=== PATIENT | male | born 1950 | race Caucasian/White ===

== ENCOUNTER 2016-10-21 16:49 | Emergency (ER) | payer OTHER ==
[2016-10-21 16:57] VITALS: BP 171/77
--- NOTE | 2016-10-21 17:37 | UC ---
Throat Pain/Nasal Fernie HPI - HPI Summary HPI Summary: complaint of nasal congestion and cough that started over 2 weeks ago intermittent headaches sinus pressure in his forehead and face when he lays down to sleep he chokes on phlegm sleeping sitting up for the last week denies fever and chills taking tylenol extra strength with relief of pain - History of Current Complaint Chief Complaint: UCRespiratory Stated Complaint: COUGH, AND CONGESTION Time Seen by Provider: 10/21/16 17:29 Hx Obtained From: Patient - Allergies/Home Medications Allergies/Adverse Reactions: Allergies Allergy/AdvReac Type Severity Reaction Status Date / Time Iohexol Allergy Severe Difficulty Verified 10/21/16 16:57 Breathing Valsartan Allergy Severe HYPERKALEMI Verified 10/21/16 16:59 A INJECTABLE MED FOR Allergy Severe Anaphylatic Uncoded 10/21/16 16:57 HYPERKALEMIA Shock Home Medications: Home Medications Diltiazem HCl Coated Beads [Diltiazem HCl ER] 240 mg PO 10/21/16 [History] Ibuprofen TAB* [Advil TAB*] 400 mg PO PRN 10/21/16 [History] PMH/Surg Hx/FS Hx/Imm Hx Previously Healthy: Yes Endocrine History Of: Reports: Diabetes - TYPE II Cardiovascular History Of: Reports: Hypertension Denies: Pacemaker/ICD Respiratory History Of: Denies: Asthma GI/ History Of: Reports: Renal Disease - Surgical History Surgical History: Yes Surgery Procedure, Year, and Place: LEFT EYE REMOVED WITH PLASTIC PROSTHETIC ( NOTHING IN SOCKET JUST PLASTIC ORB);. RIGHT nephrectomy. right knee surgery - Family History Known Family History: Negative: Cardiac Disease, Hypertension, Diabetes - Social History Occupation: Retired Lives: With Family Alcohol Use: None Alcohol Amount: glass of wine with dinner Substance Use Type: None Smoking Status (MU): Former Smoker Type: Cigarettes Amount Used/How Often: 1 PPD Length of Time of Smoking/Using Tobacco: 15 years Have You Smoked in the Last Year: No When Did the Patient Quit Smoking/Using Tobacco: 2012 Household Exposure Type: Cigarettes - Immunization History Most Recent Influenza Vaccination: 2014 Most Recent Tetanus Shot: more than 10 years Most Recent Pneumonia Vaccination: 2012 Review of Systems Constitutional: Negative, Fever Eyes: Negative ENT: Nasal Discharge Respiratory: Cough Cardiovascular: Negative Gastrointestinal: Negative Genitourinary: Negative Motor: Negative Neurovascular: Negative Musculoskeletal: Negative Neurological: Negative Psychological: Negative All Other Systems Reviewed And Are Negative: Yes Physical Exam Triage Information Reviewed: Yes Appearance: No Pain Distress, Well-Nourished Vital Signs: Initial Vital Signs Temp 98.2 F 10/21/16 16:52 Pulse 64 10/21/16 16:52 Resp 18 10/21/16 16:52 BP 171/77 10/21/16 16:52 Pulse Ox 96 10/21/16 16:52 Vital Signs Reviewed: Yes Eyes: Positive: Conjunctiva Clear ENT: Positive: Pharyngeal erythema, Nasal congestion, Nasal drainage, TMs normal , Other: - frontal sinus tenderness Neck: Positive: No Lymphadenopathy Respiratory: Positive: Lungs clear, Normal breath sounds, No respiratory distress Cardiovascular: Positive: RRR, No Murmur, Pulses Normal Abdomen Description: Positive: Nontender, Soft Bowel Sounds: Positive: Present Musculoskeletal: Positive: No Edema Neurological: Positive: Alert Psychological Exam: Normal Skin Exam: Normal Throat Pain/Nasal Course/Dx - Course Course Of Treatment: exam completed - Differential Dx/Diagnosis Differential Diagnosis/HQI/PQRI: Pharyngitis, Sinusitis, URI Provider Diagnoses: elevated blood pressure, sinusitis Discharge - Discharge Plan Condition: Stable Disposition: HOME Prescriptions: Amoxicillin/Clavulanate TAB* [Augmentin TAB 875*] 875 mg PO BID #20 tab Patient Education Materials: Sinusitis (ED) Additional Instructions: Your blood pressure is elevated- please followup with your primary care provider for further evaluation and treatment Please take antibiotic as directed. Increase fluids and rest Take acetaminophen or ibuprofen for fever or pain Please review your discharge instructions. If your symptoms do not improve please call your primary care provider or return to urgent care.
== END 2016-10-21 17:49 | disposition home or self-care (01) ==
LOC: UCEAST 16:49
DX: J32.9 Chronic sinusitis, unspecified (principal); I10 Essential (primary) hypertension; Z87.891 Personal history of nicotine dependence
CPT/HCPCS: 99212; G0463

== ENCOUNTER 2017-01-20 18:22 | Observation (INO) | payer OTHER ==
[2017-01-20] MEDS: NS 0.9% 1000 ML* 2,000 ML IV ONE ×2 (18:54→21:05)
[2017-01-20 19:01] LABS: Hematocrit 27 % (42-52); Mean Corpuscular HGB Conc 33 g/dl (31-36); Mean Corpuscular Hemoglobin 29 pg (27-31); Mean Corpuscular Volume 88 fL (80-94); Mean Platelet Volume 9 um3 (7.4-10.4); Red Cell Distribution Width 13 % (10.5-15); White Blood Count 5.7 10^3/ul (3.5-10.8)
[2017-01-20 19:16] LABS: Albumin 3.3 g/dL (3.2-5.2); BUN/Creatinine Ratio 14.2 (8-20); C Reactive Protein 10.79 mg/L (< 5.00); Calcium 8.1 mg/dL (8.6-10.3); EGFR African American 24.3 (>60); EGFR Non-African American 18.9 (>60); Globulin 2.7 g/dL (2-4); Magnesium 1.7 mg/dL (1.9-2.7); Potassium 4.2 mmol/L (3.5-5.0); Total Bilirubin 0.3 mg/dL (0.2-1.0)
--- NOTE | 2017-01-20 19:24 | RAD ---
INDICATION: Altered mental status. COMPARISON: Comparison is made with a prior study from October 29, 2014. TECHNIQUE: A portable view of the chest was obtained. FINDINGS: Cardiac and mediastinal contours appear to be within normal limits. The lungs are clear. No pleural effusion is seen. IMPRESSION: NO EVIDENCE FOR ACUTE DISEASE.
[2017-01-20] MEDS ORDERED: Magnesium Sulfate 2 GM IV* 2 GM/50 ML BAG IVPB ONE (19:45)
[2017-01-20 19:46] LABS: TSH (Thyroid Stimulating Horm) 1.84 mcIU/mL (0.34-5.60)
--- NOTE | 2017-01-20 20:10 | ED ---
I, Rafy,Pretty, scribed for Blake Santillan MD on 01/20/17 at 1939 . Syncope/Near Syncope - HPI Summary HPI Summary: This 66 y/o male presents to ED for persistent feeling of malaise and orthostatic near syncope since today. Pt reports persistent cough, myalgia, and chest congestion since 3 weeks ago, and acute onset of lightheaded dizziness that is worse with standing since today AM. Pt is currently on abx cefdinir in addition to his daily medication of diltiazem, furosemid, terazosin, and glimepiride. Pt is noted with heart rate of 46 bpm at triage. PMHx is significant for renal CA s/p right nephrectomy, DM, and chronic diarrhea. - History Of Current Complaint Chief Complaint: EDGeneral Time Seen by Provider: 01/20/17 18:57 Hx Obtained From: Patient, Medical Records Onset/Duration: Sudden Onset Timing: Constant Context: Unwitnessed Aggravating Factor(s): Position Change Alleviating Factor(s): Spontaneous Resolution Associated Signs And Symptoms: Diarrhea - chronic - Allergies/Home Medications Allergies/Adverse Reactions: Allergies Allergy/AdvReac Type Severity Reaction Status Date / Time Iohexol Allergy Severe Difficulty Verified 10/21/16 16:57 Breathing Valsartan Allergy Severe HYPERKALEMI Verified 10/21/16 16:59 A INJECTABLE MED FOR Allergy Severe Anaphylatic Uncoded 10/21/16 16:57 HYPERKALEMIA Shock PMH/Surg Hx/FS Hx/Imm Hx Endocrine/Hematology History: Reports: Hx Diabetes - TYPE II, Hx Anemia - previously while on chemo Cardiovascular History: Reports: Hx Hypertension Denies: Hx Pacemaker/ICD Respiratory History: Reports: Hx Sleep Apnea Denies: Hx Asthma GI History: Reports: Hx Gastroesophageal Reflux Disease, Hx Irritable Bowel, Other GI Disorders - chronic diarrhea History: Reports: Hx Benign Prostatic Hyperplasia, Hx Chronic Renal Failure, Hx Kidney Infection - Hx of, Hx Renal Disease, Other Problems/Disorders - rt renal mass and nephrectomy Musculoskeletal History: Reports: Hx Bursitis - elbows, Hx Orthopedic Injury - right ACL Sensory History: Reports: Hx Cataracts, Hx Contacts or Glasses, 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 RIGHT nephrectomy. right knee surgery Hx Anesthesia Reactions: Yes - Immunization History Date of Tetanus Vaccine: Unk Date of Influenza Vaccine: Fall 2012 Infectious Disease History: No Infectious Disease History: Denies: Traveled Outside the [place] in Last 30 Days - Family History Known Family History: Negative: Cardiac Disease, Hypertension, Diabetes - Social History Alcohol Use: None Alcohol Amount: glass of wine with dinner Hx Substance Use: No Substance Use Type: Reports: None Hx Tobacco Use: Yes Smoking Status (MU): Former Smoker Type: Cigarettes Amount Used/How Often: 1 PPD Length of Time of Smoking/Using Tobacco: 15 years Have You Smoked in the Last Year: No Review of Systems Negative: Fever Positive: Other - sinus discomfort Positive: Cough Positive: Syncope - near syncope worse with standing Negative: Anxious, Depressed All Other Systems Reviewed And Are Negative: Yes Physical Exam Triage Information Reviewed: Yes Vital Signs On Initial Exam: Initial Vitals Temp Pulse Resp BP Pulse Ox 98.4 F 48 14 104/48 100 01/20/17 18:25 01/20/17 18:25 01/20/17 18:25 01/20/17 18:25 01/20/17 18:25 Vital Signs Reviewed: Yes Appearance: Positive: Ill-Appearing Skin: Positive: Pale Head/Face: Positive: Normal Head/Face Inspection Eyes: Positive: EOMI, ABDIAS Neck: Positive: Supple, Nontender Respiratory/Lung Sounds: Positive: Clear to Auscultation, Breath Sounds Present Cardiovascular: Positive: Bradycardia Abdomen Description: Positive: Nontender, No Organomegaly Musculoskeletal: Positive: Strength/ROM Intact Neurological: Positive: Sensory/Motor Intact, Alert, Oriented to Person Place, Time Psychiatric: Positive: Affect/Mood Appropriate AVPU Assessment: Alert Diagnostics - Vital Signs Vital Signs Temp Pulse Resp BP Pulse Ox 01/20/17 18:46 44 13 100/57 100 01/20/17 18:40 46 17 99 01/20/17 18:25 98.4 F 48 14 104/48 100 - Laboratory Lab Results: Lab Results 01/20/17 01/20/17 01/20/17 Range/Units 18:45 18:45 18:45 WBC 5.7 (3.5-10.8) 10^3/ul RBC 3.10 L (4.0-5.4) 10^6/ul Hgb 9.0 L (14.0-18.0) g/dl Hct 27 L (42-52) % MCV 88 (80-94) fL MCH 29 (27-31) pg MCHC 33 (31-36) g/dl RDW 13 (10.5-15) % Plt Count 198 (150-450) 10^3/ul MPV 9 (7.4-10.4) um3 Neut % (Auto) 60.8 (38-83) % Lymph % (Auto) 26.7 (25-47) % [place]ajas % (Auto) 8.4 (1-9) % Eos % (Auto) 3.6 (0-6) % Baso % (Auto) 0.5 (0-2) % Absolute Neuts (auto) 3.4 (1.5-7.7) 10^3/ul Absolute Lymphs (auto) 1.5 (1.0-4.8) 10^3/ul Absolute Monos (auto) 0.5 (0-0.8) 10^3/ul Absolute Eos (auto) 0.2 (0-0.6) 10^3/ul Absolute Basos (auto) 0 (0-0.2) 10^3/ul Absolute Nucleated RBC 0 10^3/ul Nucleated RBC % 0.1 INR (Anticoag Therapy) 0.87 L (0.89-1.11) APTT 32.0 (26.0-36.3) seconds D-Dimer, Quantitative < 200 (Less Than 230) ng/mL Sodium 132 L (133-145) mmol/L Potassium 4.2 (3.5-5.0) mmol/L Chloride 106 (101-111) mmol/L Carbon Dioxide 18 L (22-32) mmol/L Anion Gap 8 (2-11) mmol/L BUN 47 H (6-24) mg/dL Creatinine 3.31 H (0.67-1.17) mg/dL Est GFR ( Amer) 24.3 (>60) Est GFR (Non-Af Amer) 18.9 (>60) BUN/Creatinine Ratio 14.2 (8-20) Glucose 227 H (70-100) mg/dL Lactic Acid (0.5-2.0) mmol/L Calcium 8.1 L (8.6-10.3) mg/dL Magnesium 1.7 L (1.9-2.7) mg/dL Total Bilirubin 0.30 (0.2-1.0) mg/dL AST 11 L (13-39) U/L ALT 10 (7-52) U/L Alkaline Phosphatase 70 (34-104) U/L Total Creatine Kinase 73 (10-223) U/L CK-MB (CK-2) Pending Troponin I 0.00 (<0.04) ng/mL C-Reactive Protein 10.79 H (< 5.00) mg/L B-Natriuretic Peptide ( - 100) pg/mL Total Protein 6.0 L (6.4-8.9) g/dL Albumin 3.3 (3.2-5.2) g/dL Globulin 2.7 (2-4) g/dL Albumin/Globulin Ratio 1.2 (1-3) Lipase 20 (11.0-82.0) U/L TSH Pending 01/20/17 01/20/17 Range/Units 18:45 18:45 WBC (3.5-10.8) 10^3/ul RBC (4.0-5.4) 10^6/ul Hgb (14.0-18.0) g/dl Hct (42-52) % MCV (80-94) fL MCH (27-31) pg MCHC (31-36) g/dl RDW (10.5-15) % Plt Count (150-450) 10^3/ul MPV (7.4-10.4) um3 Neut % (Auto) (38-83) % Lymph % (Auto) (25-47) % Lajas % (Auto) (1-9) % Eos % (Auto) (0-6) % Baso % (Auto) (0-2) % Absolute Neuts (auto) (1.5-7.7) 10^3/ul Absolute Lymphs (auto) (1.0-4.8) 10^3/ul Absolute Monos (auto) (0-0.8) 10^3/ul Absolute Eos (auto) (0-0.6) 10^3/ul Absolute Basos (auto) (0-0.2) 10^3/ul Absolute Nucleated RBC 10^3/ul Nucleated RBC % INR (Anticoag Therapy) (0.89-1.11) APTT (26.0-36.3) seconds D-Dimer, Quantitative (Less Than 230) ng/mL Sodium (133-145) mmol/L Potassium (3.5-5.0) mmol/L Chloride (101-111) mmol/L Carbon Dioxide (22-32) mmol/L Anion Gap (2-11) mmol/L BUN (6-24) mg/dL Creatinine (0.67-1.17) mg/dL Est GFR ( Amer) (>60) Est GFR (Non-Af Amer) (>60) BUN/Creatinine Ratio (8-20) Glucose (70-100) mg/dL Lactic Acid 1.3 (0.5-2.0) mmol/L Calcium (8.6-10.3) mg/dL Magnesium (1.9-2.7) mg/dL Total Bilirubin (0.2-1.0) mg/dL AST (13-39) U/L ALT (7-52) U/L Alkaline Phosphatase (34-104) U/L Total Creatine Kinase (10-223) U/L CK-MB (CK-2) Troponin I (<0.04) ng/mL C-Reactive Protein (< 5.00) mg/L B-Natriuretic Peptide 329 H ( - 100) pg/mL Total Protein (6.4-8.9) g/dL Albumin (3.2-5.2) g/dL Globulin (2-4) g/dL Albumin/Globulin Ratio (1-3) Lipase (11.0-82.0) U/L TSH Result Diagrams: 01/20/17 18:45 01/20/17 18:45 Lab Statement: Any lab studies that have been ordered have been reviewed, and results considered in the medical decision making process. - Radiology CXR Xray Interpretation: No Acute Changes Radiology Interpretation Completed By: Radiologist - EKG 7644 Cardiac Rate: Bradycardia - 46 bpm EKG Interpretation: junctional rhythm Course/Dx Course Of Treatment: NO CRITICAL CARE TIME Assessment/Plan: DISCUSSED RESULTS WITH PATIENT. ADMIT HOSPITALIST STABLE. - Diagnoses Provider Diagnoses: Symptomatic bradycardia, Junctional bradycardia, Near syncope, Renal insufficiency - Physician Notifications Discussed Care Of Patient With: Dr. Grover (Hospitalist) at 1952 PM Time Discussed With Above Provider: 19:52 Discharge - Discharge Plan Condition: Stable Disposition: ADMITTED TO [facility] Referrals: Rosaura Solomon MD [Primary Care Provider] - The documentation as recorded by the Rafy salmon Soohyun accurately reflects the service I personally performed and the decisions made by , Blake Santillan MD.
[2017-01-20] MEDS ORDERED: Dextrose 50% Syringe 50 ML* 25 GM/50 ML SYRINGE IV PUSH PRN (20:53)
[2017-01-20] MEDS ORDERED: Terazosin CAP* 1 MG PO SCH (21:00)
[2017-01-20] MEDS: Insulin LISPRO* 1 UNITS UNIT SUBCUT SCH (22:58)
[2017-01-20] MEDS: Heparin VIAL(*) 5000 UNITS/ML VIAL (FIVE THOUSAND) SUBCUT SCH (23:01)
[2017-01-20 23:10] LABS: Urine Bacteria Absent (Absent); Urine Bilirubin Negative (Negative); Urine Glucose Negative (Negative); Urine Nitrite Negative (Negative)
[2017-01-21] MEDS: Heparin VIAL(*) 5000 UNITS/ML VIAL (FIVE THOUSAND) SUBCUT SCH ×2 (05:39→13:01)
--- NOTE | 2017-01-21 06:17 | HP ---
HISTORY AND PHYSICAL: DATE OF ADMISSION: 01/20/17 PRIMARY CARE PHYSICIAN: Dr. Solomon. CHIEF COMPLAINT: Lightheadedness. HISTORY OF PRESENT ILLNESS: The patient is a 66-year-old gentleman who said he felt he was on the verge of passing out earlier today that started about 3 or 4 p.m. He says he had a recent upper respiratory infection, in which he had a nagging cough and sinus congestion. He has had that for about 3 weeks. His significant other has the same thing. He actually went and saw the ear, nose and throat doctor who put him on cefdinir. He has only been on that for 3 to 4 days. He denies any chest pain or nausea or vomiting. He does have some pain in his chest when he does cough, however. He says his fever did decrease to 101 at one point. He also notes that one of his medications, the diltiazem, was just added to his current regimen. PAST MEDICAL HISTORY: The patient has a past medical history significant for diabetes mellitus type 2, hypertension, GERD, chronic kidney disease, urinary retention, renal cancer, status post nephrectomy. PAST SURGICAL HISTORY: Significant for the nephrectomy as noted earlier. CURRENT MEDICATIONS: 1. Cefdinir 300 mg twice daily. 2. Furosemide 20 mg daily. 3. Diltiazem ER 300 mg in the morning. 4. Cardia XT 240 mg in the evening. 5. Terazosin 2 mg daily. 6. Glimepiride 1 mg twice daily. 7. Atenolol 25 mg daily. ALLERGIES: He has an allergy/adverse reaction to IOHEXOL and VALSARTAN. FAMILY HISTORY: Mother at age 89 of Alzheimer's. Father at 76 with CHF. SOCIAL HISTORY: No tobacco, no alcohol or recreational drug use. He quit tobacco 4 years ago, did smoke a pack a day for 20 years. He is a retired manufacturing plant technician. He has a significant other, Lily Barry, who is his healthcare proxy. He has no children. REVIEW OF SYSTEMS: A 14-point review of systems was completed with the patient. All pertinent positives and negatives are in the history of present illness; otherwise they are negative. PHYSICAL EXAMINATION GENERAL: Pleasant gentleman lying in bed in no acute distress. VITAL SIGNS: Temperature 98.1 degrees, heart rate 30 beats per minute, respiratory rate 17 breaths per minute, pulse ox 98%, his blood pressure is 94/ 45. HEENT: Normocephalic, atraumatic. Pupils are equal, round, and reactive to light. Moist mucous membranes. NECK: Supple. No JVD, bruits, palpable thyroid or lymphadenopathy. LUNGS: His chest is clear to auscultation and percussion bilaterally. CARDIOVASCULAR: S1, S2 appreciated. Regular rate and rhythm. ABDOMEN: Positive bowel sounds in all 4 quadrants. Soft, nontender, nondistended. No hepatosplenomegaly. EXTREMITIES: No cyanosis, clubbing or edema, +2 peripheral pulses bilaterally. NEUROLOGIC: Alert and oriented x3. Moves all extremities. SKIN: No distinct rashes or abnormalities. LABORATORY DATA/DIAGNOSTIC STUDIES: White count 5.7, hemoglobin 9.0, hematocrit 27, platelets 198. His sodium is 132, potassium 4.2, chloride 106, CO2 18, BUN 47, creatinine 3.31, glucose 227, lactic acid 1.3. CRP 10.79. His magnesium is 1.7. D-dimer is less than 200. Chest x-ray shows no evidence for acute disease. His EKG shows a junctional rhythm at about 47 beats a minute, left axis deviation. No acute ST-T wave changes. ASSESSMENT AND PLAN: 1. Symptomatic bradycardia with a junctional rhythm, almost certainly secondary to the fact that he is taking both Cardia and diltiazem now. My guess is that his PCP was actually trying to increase his Cardizem, but the patient thought he was supposed to take both. In fact, he had an addition to atenolol. I will obviously hold these medications until we can get his normal sinus rhythm. I anticipate that will make him feel much better. If he does not improve, we will get an echo checked for his heart function. 2. Diabetes mellitus. Placed on fingersticks with sliding scale insulin. Hold oral hyperglycemics. 3. Hypomagnesemia. The patient received magnesium supplementation in the ER. We will recheck in the a.m.. 4. Anemia. He is about to where he normally is. We will monitor if patient's symptoms do not improve. 5. Hypertension. Actually hypotensive now with his increased use of AV louisa blocking agents. We will hold them and I anticipate this will improve. 6. FEN. Consistent carb diet. 7. DVT prophylaxis. Heparin subcu. 8. The patient is a full code. TIME SPENT: Over 75 minutes was spent on this H and P, more than 40 minutes of which was spent in direct [id number] contact with the patient in evaluation, physical exam, and counseling and coordination of care. CC: Dr. Solomon* [id number]/CPS #: [id number] ALLISON
[2017-01-21] MEDS: Insulin LISPRO* 1 UNITS UNIT SUBCUT SCH ×2 (07:21→11:25)
--- NOTE | 2017-01-21 11:58 | ECHO ---
Patient: PAULINO LEIVA [facility] Rec#: [id number] : 1950 Date: 01/21/2017 Age: 66y Height: 177.8 cm / 70.0 in Weight: 95.7 kg / 210.9 lbs Sex: M BSA: 2.1 Room#: 452 Admit Date#: 01/20/2017 Type: Inpatient Referring: Héctor Grover MD Reading: Sung Aden MD Jelly Filter Tender: Luba Cesar RN RDCS CC: Rosaura Solomon MD Transthoracic Echocardiogram Indication: Bradycardia, near syncope BP: 118/43 HR: 59 Rhythm: Bradycardia Findings History: HTN, DM, MITCHELL, GERD, former smoker, renal cancer, right nephrectomy, CRF Technical Comments: The study is technically limited due to patient body habitus. The study is technically limited due to the patient's smoking history. Completed at 1120. Left Ventricle: The left ventricular chamber size is normal. Mild concentric left ventricular hypertrophy is observed. There is increased basal septal hypertrophy noted without evidence of an increased gradient across the left ventricular outflow tract. Global left ventricular wall motion and contractility are within normal limits. There is normal left ventricular systolic function. The estimated ejection fraction is 55-60%. There is no consistent Doppler evidence of clinically significant diastolic dysfunction. Left Atrium: The left atrium is mildly dilated. Right Ventricle: The right ventricular chamber size and systolic function are within normal limits. Right Atrium: The right atrium is mildly dilated. Aortic Valve: The aortic valve is trileaflet. The aortic valve leaflets are mildly thickened. There is aortic annular calcification. There is a trace of aortic regurgitation. There is mild aortic stenosis. The mean gradient of the aortic valve is 9.8 mmHg. The highest aortic valve velocity was obtained with the standard probe from the A5C view. Mitral Valve: Moderate mitral annular calcification present. The mitral valve leaflets are mildly thickened. There is mild to moderate mitral regurgitation. There is no evidence of mitral stenosis. Tricuspid Valve: The tricuspid valve leaflets are normal. There is mild tricuspid regurgitation. No pulmonary hypertension is noted. There is no tricuspid stenosis. Pulmonic Valve: The pulmonic valve appears normal. There is a trace pulmonic regurgitation. There is no pulmonic stenosis. Pericardium: There is no significant pericardial effusion. A pericardial fat pad is visualized. Aorta: There is no dilatation of the ascending aorta. There is no dilatation of the aortic arch. The aortic root is normal in size. Pulmonary Artery: The main pulmonary artery appears normal. Venous: The inferior vena cava appears normal in size. There is a greater than 50% respiratory change in the inferior vena cava dimension. Conclusions Mild concentric left ventricular hypertrophy is observed. There is increased basal septal hypertrophy noted without evidence of an increased gradient across the left ventricular outflow tract. Global left ventricular wall motion and contractility are within normal limits. The estimated ejection fraction is 55-60%. There is a trace of aortic regurgitation. There is mild aortic stenosis. The mitral valve leaflets are mildly thickened. There is mild to moderate mitral regurgitation. There is mild tricuspid regurgitation. No pulmonary hypertension is noted. There is no dilatation of the ascending aorta. There is no significant pericardial effusion. Compared to study of 07/22/14, the LV function is the same The mitral reguritation is slightly worse Measurements Name Value Normal Range RVIDd (AP) 2D 2.4 cm (0.9 - 2.6) RVDdMajor (2D) 3.4 cm (2.2 - 4.4) RAd ISD 4CH 5.4 cm (3.4 - 4.9) RA (A4C)W 4.4 cm (2.9 - 4.6) IVSd (2D) 1.1 cm (0.6 - 1) LVPWd (2D) 1.1 cm (0.6 - 1) LVIDd (2D) 4.9 cm (3.6 - 5.4) LVIDs (2D) 3.4 cm - LV FS (2D) 31 % (25 - 45) Aortic Annulus 2.3 cm (1.4 - 2.6) Ao root diameter (2D) 3.3 cm (2.1 - 3.5) Ascending Ao 2.9 cm (2.1 - 3.4) Aortic arch 2.5 cm (1.8 - 3.4) LA dimension (AP) 2D 4.5 cm (2.3 - 3.8) LAd ISD 4CH 5.5 cm (2.9 - 5.3) LA ISD 4CH W 4.9 cm (2.5 - 4.5) Name Value Normal Range LA ESV SP 4CH (A/L) 81 ml - LA ESV SP 2CH (A/L) 83 ml - LA ESV BP (A/L) 83 ml - LA ESV BP (A/L) index 39 ml/m2 - LA ESV SP 4CH (MOD) 71 ml - LA ESV SP 2CH (MOD) 80 ml - Name Value Normal Range MV E-wave Vmax 1.1 m/sec - MV deceleration time 183 msec - MV A-wave Vmax 0.8 m/sec - MV E:A ratio 1.4 ratio - LV septal e' Vmax 0.11 m/sec - LV lateral e' Vmax 0.11 m/sec - LV E:e' septal ratio 10 ratio - LV E:e' lateral ratio 10 ratio - Name Value Normal Range AV Vmax 2.1 m/sec - AV VTI 50.9 cm - AV peak gradient 17.5 mmHg - AV mean gradient 9.8 mmHg - LVOT diameter 2 cm - LVOT Vmax 0.98 m/sec - LVOT VTI 24.8 cm - LVOT mean gradient 2 mmHg - DOI (VTI) 0.49 ratio - GRAHAM (continuity Vmax) 1.5 cm2 - GRAHAM (continuity VTI) 1.5 cm2 - Name Value Normal Range TR Vmax 2.6 m/sec - TR peak gradient 27 mmHg - RAP 3 mmHg - RVSP 30 mmHg - IVC diameter 1.6 cm - Name Value Normal Range PV Vmax 0.81 m/sec -
--- NOTE | 2017-01-21 12:30 | PN ---
Subjective Date of Service: 01/21/17 Interval History: Pt is feeling well. No further dizziness or lightheadedness. He has been ambulating some around the room but has not been up in the halls. No SOB. He has mild chest discomfort when coughing. Objective Active Medications: Dextrose (D50w Syringe 50 Ml*) 12.5 gm IV PUSH .FOR FS < 60 - SS PRN PRN Reason: FS < 60 Heparin Sodium (Porcine) (Heparin Vial(*)) 5,000 units SUBCUT Q8HR [facility] Last Admin: 01/21/17 05:39 Dose: 5,000 units Insulin Human Lispro (Humalog*) 0 units SUBCUT ACHS [facility] PRN Reason: Protocol Last Admin: 01/21/17 11:25 Dose: Not Given Terazosin HCl (Hytrin Cap*) 2 mg PO BEDTIME [facility] Last Admin: 01/20/17 23:21 Dose: 2 mg Vital Signs 01/20/17 01/20/17 01/20/17 21:00 21:16 21:19 Temperature Pulse Rate 43 40 38 Respiratory 12 12 17 Rate Blood Pressure 89/49 102/46 (mmHg) O2 Sat by Pulse 99 99 98 Oximetry 01/20/17 01/20/17 01/20/17 21:24 21:30 21:36 Temperature 98.1 F Pulse Rate 39 40 Respiratory 17 18 Rate Blood Pressure 94/45 (mmHg) O2 Sat by Pulse 97 99 Oximetry 01/20/17 01/21/17 01/21/17 21:57 03:05 07:08 Temperature 97.7 F 98.0 F Pulse Rate 44 55 Respiratory 16 16 16 Rate Blood Pressure 115/49 118/43 (mmHg) O2 Sat by Pulse 99 100 Oximetry 01/21/17 01/21/17 07:32 11:43 Temperature 98.4 F 98.4 F Pulse Rate 59 58 Respiratory 16 16 Rate Blood Pressure 126/57 143/63 (mmHg) O2 Sat by Pulse 98 98 Oximetry Oxygen Devices in Use Now: None Appearance: Middle aged male sitting up on the edge of the bed, NAD Eyes: No Scleral Icterus Ears/Nose/Mouth/Throat: Mucous Membranes Moist Respiratory: Symmetrical Chest Expansion and Respiratory Effort, Clear to Auscultation Cardiovascular: NL Sounds; No Murmurs; No JVD, RRR, No Edema Abdominal: NL Sounds; No Tenderness; No Distention Extremities: No Clubbing, Cyanosis Skin: No Rash or Ulcers, No Nodules or Sclerosis Neurological: Alert and Oriented x 3 Result Diagrams: 01/20/17 18:45 01/20/17 18:45 Additional Lab and Data: Lab Results 01/20/17 01/20/17 01/20/17 Range/Units 18:45 18:45 18:45 WBC 5.7 (3.5-10.8) 10^3/ul RBC 3.10 L (4.0-5.4) 10^6/ul Hgb 9.0 L (14.0-18.0) g/dl Hct 27 L (42-52) % MCV 88 (80-94) fL MCH 29 (27-31) pg MCHC 33 (31-36) g/dl RDW 13 (10.5-15) % Plt Count 198 (150-450) 10^3/ul MPV 9 (7.4-10.4) um3 Neut % (Auto) 60.8 (38-83) % Lymph % (Auto) 26.7 (25-47) % [place] % (Auto) 8.4 (1-9) % Eos % (Auto) 3.6 (0-6) % Baso % (Auto) 0.5 (0-2) % Absolute Neuts (auto) 3.4 (1.5-7.7) 10^3/ul Absolute Lymphs (auto) 1.5 (1.0-4.8) 10^3/ul Absolute Monos (auto) 0.5 (0-0.8) 10^3/ul Absolute Eos (auto) 0.2 (0-0.6) 10^3/ul Absolute Basos (auto) 0 (0-0.2) 10^3/ul Absolute Nucleated RBC 0 10^3/ul Nucleated RBC % 0.1 INR (Anticoag Therapy) 0.87 L (0.89-1.11) APTT 32.0 (26.0-36.3) seconds D-Dimer, Quantitative < 200 (Less Than 230) ng/mL Sodium 132 L (133-145) mmol/L Potassium 4.2 (3.5-5.0) mmol/L Chloride 106 (101-111) mmol/L Carbon Dioxide 18 L (22-32) mmol/L Anion Gap 8 (2-11) mmol/L BUN 47 H (6-24) mg/dL Creatinine 3.31 H (0.67-1.17) mg/dL Est GFR ( Amer) 24.3 (>60) Est GFR (Non-Af Amer) 18.9 (>60) BUN/Creatinine Ratio 14.2 (8-20) Glucose 227 H (70-100) mg/dL Lactic Acid (0.5-2.0) mmol/L Calcium 8.1 L (8.6-10.3) mg/dL Magnesium 1.7 L (1.9-2.7) mg/dL Total Bilirubin 0.30 (0.2-1.0) mg/dL AST 11 L (13-39) U/L ALT 10 (7-52) U/L Alkaline Phosphatase 70 (34-104) U/L Total Creatine Kinase 73 (10-223) U/L CK-MB (CK-2) Pending Troponin I 0.00 (<0.04) ng/mL C-Reactive Protein 10.79 H (< 5.00) mg/L B-Natriuretic Peptide ( - 100) pg/mL Total Protein 6.0 L (6.4-8.9) g/dL Albumin 3.3 (3.2-5.2) g/dL Globulin 2.7 (2-4) g/dL Albumin/Globulin Ratio 1.2 (1-3) Lipase 20 (11.0-82.0) U/L TSH Pending 01/20/17 01/20/17 Range/Units 18:45 18:45 WBC (3.5-10.8) 10^3/ul RBC (4.0-5.4) 10^6/ul Hgb (14.0-18.0) g/dl Hct (42-52) % MCV (80-94) fL MCH (27-31) pg MCHC (31-36) g/dl RDW (10.5-15) % Plt Count (150-450) 10^3/ul MPV (7.4-10.4) um3 Neut % (Auto) (38-83) % Lymph % (Auto) (25-47) % [place] % (Auto) (1-9) % Eos % (Auto) (0-6) % Baso % (Auto) (0-2) % Absolute Neuts (auto) (1.5-7.7) 10^3/ul Absolute Lymphs (auto) (1.0-4.8) 10^3/ul Absolute Monos (auto) (0-0.8) 10^3/ul Absolute Eos (auto) (0-0.6) 10^3/ul Absolute Basos (auto) (0-0.2) 10^3/ul Absolute Nucleated RBC 10^3/ul Nucleated RBC % INR (Anticoag Therapy) (0.89-1.11) APTT (26.0-36.3) seconds D-Dimer, Quantitative (Less Than 230) ng/mL Sodium (133-145) mmol/L Potassium (3.5-5.0) mmol/L Chloride (101-111) mmol/L Carbon Dioxide (22-32) mmol/L Anion Gap (2-11) mmol/L BUN (6-24) mg/dL Creatinine (0.67-1.17) mg/dL Est GFR ( Amer) (>60) Est GFR (Non-Af Amer) (>60) BUN/Creatinine Ratio (8-20) Glucose (70-100) mg/dL Lactic Acid 1.3 (0.5-2.0) mmol/L Calcium (8.6-10.3) mg/dL Magnesium (1.9-2.7) mg/dL Total Bilirubin (0.2-1.0) mg/dL AST (13-39) U/L ALT (7-52) U/L Alkaline Phosphatase (34-104) U/L Total Creatine Kinase (10-223) U/L CK-MB (CK-2) Troponin I (<0.04) ng/mL C-Reactive Protein (< 5.00) mg/L B-Natriuretic Peptide 329 H ( - 100) pg/mL Total Protein (6.4-8.9) g/dL Albumin (3.2-5.2) g/dL Globulin (2-4) g/dL Albumin/Globulin Ratio (1-3) Lipase (11.0-82.0) U/L TSH Assess/Plan/Problems-Billing Mr Martinez is a 66 yo M who has a h/o RCC s/p nephrectomy, HTN, type II DM, CKD stage III-IV and GERD who presented to the ER with c/o lightheadedness and a feeling like he may pass out and was found to be in a junctional bradycardic rhythm. - Patient Problems (1) Junctional bradycardia Current Visit: Yes Status: Acute Code(s): R00.1 - BRADYCARDIA, UNSPECIFIED SNOMED Code(s): 361936654 Comment: I believe the patients symptomatic bradycardia was secondary to the junctional rhythm secondary to too much AV louisa jorge alberto on board (540mg of diltiazem and 25mg of atenolol). Diltiazem and atenolol have been discontinued. He is now in sinus bradycardia. Will get EKG to confirm. Will get patient up and walking in the halls. If stable and HR increases appropriately with exertion will likely be able to d/c pt home. (2) Chronic kidney disease, stage IV (severe) Current Visit: Yes Status: Acute Code(s): N18.4 - CHRONIC KIDNEY DISEASE, STAGE 4 (SEVERE) SNOMED Code(s): 517977788 Comment: The patient has AGUSTIN with his creatinine being 3.31 up from his baseline of 2.2. He did not receive any fluids overnight but did get 2L in the ER. Repeat BMP now. I suspect his AGUSTIN is secondary to poor perfusion secondary to his junctional bradycardia. (3) Hypertension Current Visit: Yes Status: Acute Code(s): I10 - ESSENTIAL (PRIMARY) HYPERTENSION SNOMED Code(s): 02317666 Comment: BP is mildly elevated. Will start amlodipine 5mg daily tomorrow and his BP will need to be monitored closely. He will need to follow up with his PCP in the next couple days to determine is his BP/HR are stable. I am going to try to get records from his PCP to determine his baseline VS and accurate medication list. (4) Diabetes type 2, controlled Current Visit: Yes Status: Acute Code(s): E11.9 - TYPE 2 DIABETES MELLITUS WITHOUT COMPLICATIONS SNOMED Code(s): 78133704 Comment: Sugars have fluctuated quite a bit today. Will resume glimepiride. (5) DVT prophylaxis Current Visit: Yes Status: Acute Code(s): OBW3370 - SNOMED Code(s): 410509451 Comment: SQ heparin (6) Full code status Current Visit: Yes Status: Acute Code(s): Z78.9 - OTHER SPECIFIED HEALTH STATUS SNOMED Code(s): 173152813
[2017-01-21 13:55] LABS: BUN/Creatinine Ratio 13.9 (8-20); Calcium 8.2 mg/dL (8.6-10.3); EGFR African American 24.9 (>60); EGFR Non-African American 19.4 (>60); Potassium 4.5 mmol/L (3.5-5.0)
[2017-01-21 16:17] VITALS: BP 141/66
--- NOTE | 2017-01-22 14:48 | DS ---
DISCHARGE SUMMARY: DATE OF ADMISSION: 01/20/17 DATE OF DISCHARGE: 01/21/17 PRIMARY CARE PROVIDER: Dr. Solomon. PRINCIPAL DIAGNOSIS: Junctional symptomatic bradycardia - resolved. SECONDARY DIAGNOSES: 1. Type 2 diabetes. 2. Hypertension. 3. History of renal cell carcinoma, status post nephrectomy. 4. Stage 3 to 4 chronic kidney disease. DISCHARGE MEDICATIONS: 1. Cefdinir 300 mg p.o. twice daily to complete home course of antibiotics. 2. Terazosin 2 mg p.o. daily. 3. Glimepiride 1 mg p.o. b.i.d. 4. Amlodipine 5 mg p.o. daily. Discontinued medications: 1. Atenolol. 2. Diltiazem. HOSPITAL COURSE: Mr. Martinez is a 66-year-old male with history of hypertension , type 2 diabetes, and renal cell carcinoma, status post nephrectomy approximately 3 years ago, who presents to the emergency room with complaints of lightheadedness. The patient states he felt almost faint. In the emergency room, the patient was noted to be bradycardic with a junctional rhythm. Upon reviewing the patient's home medication list, it became clear that he was on both Cartia XT as well as extended release diltiazem. The patient was taking a total of 540 mg of diltiazem a day in addition to atenolol 25 mg a day. I suspect the patient's junctional rhythm and lightheadedness and ultimately bradycardia were related to too much AV louisa jorge alberto medication. It is unclear how the patient got on both formulations of diltiazem; however, he was taking both. The patient was taken off his atenolol as well as both formulations of diltiazem and with this, his heart rate returned to sinus rhythm in the 60s. The patient is no longer feeling lightheaded or dizzy. He got up and ambulated around the hallway without any difficulty. The patient will be started on amlodipine 5 mg p.o. daily to start 01/22/17 for blood pressure control. I have asked the patient to follow up with Dr. Solomon in the next couple of days to ensure that his heart rate and blood pressure are under decent control. Also, on admission, the patient was noted to have a creatinine of 3.31. This is up from his baseline of 2.2. My suspicion is that acute kidney injury is secondary to poor perfusion while in the junctional rhythm. A followup creatinine on the day of discharge revealed it had fallen to 3.24. The patient was wishing to go home at this point. He states that he is not drinking as much as he normally does and he will pick this up. The patient will have a followup BMP on 01/23/17. The patient again will need to follow up with his primary care provider in the next couple of days. FOLLOWUP CONCERNS: The patient is being discharged home today, 01/21/17. He is to follow up with Dr. Solomon in the next 1 to 3 days. ACTIVITY LEVEL: As tolerated. DIET: Diabetic. CONDITION ON DISCHARGE: Stable. TIME SPENT: Thirty-five minutes was spent discharging this patient. CC: Dr. Solomon* [id number]/CPS #: [id number] ALLISON
== END 2017-01-21 17:18 | disposition home or self-care (01) ==
LOC: ED 18:22 → MEDTELE 20:48
PROVIDERS: ADMIT Internal Medicine; ATTEND Hospitalist
DX: R00.1 Bradycardia, unspecified (principal); E11.9 Type 2 diabetes mellitus without complications; I12.9 Hypertensive chronic kidney disease with stage 1 through stage 4 chronic kidney disease, or unspecified chronic kidney disease; N18.4 Chronic kidney disease, stage 4 (severe); E83.42 Hypomagnesemia; D64.9 Anemia, unspecified; I51.7 Cardiomegaly; Z79.84 Long term (current) use of oral hypoglycemic drugs; Z79.899 Other long term (current) drug therapy; Z88.8 Allergy status to other drugs, medicaments and biological substances; Z87.891 Personal history of nicotine dependence; Z90.5 Acquired absence of kidney
CPT/HCPCS: 36415; 71010; 80048; 80053; 81003; 81015; 82550; 82553; 83605; 83690; 83735; 83880; 84443; 84484; 85025; 85379; 85610; 85730; 86140; 87040; 87086; 93005; 93306; 96360; 96361; 96372; 99284; A9270-GY; G0378; J1644

== ENCOUNTER 2018-01-07 22:27 | Emergency (ER) | payer MEDICARE ==
[2018-01-07] MEDS ORDERED: Aspirin Low Dose CHEW TAB* 81 MG PO ONE (23:41)
[2018-01-07] MEDS ORDERED: Morphine INJ* 4 MG/ML 1 ML SYRINGE (NEW SYRINGE VERSION) IV ONE (23:41)
[2018-01-07] MEDS ORDERED: Ondansetron INJ* 2 MG/ML VIAL IV ONE (23:42)
[2018-01-08 00:03] LABS: ABS Basophils 0.1 10^3/ul (0-0.2); ABS Eosinophils 0.2 10^3/ul (0-0.6); ABS Lymphocytes 1.2 10^3/ul (1.0-4.8); ABS Monocytes 0.3 10^3/ul (0-0.8); ABS Neutrophils 4.5 10^3/ul (1.5-7.7); ABS Nucleated RBC 0 10^3/ul; Eosinophil % 3.3 % (0-6); Hematocrit 28 % (42-52); Hemoglobin 9.4 g/dl (14.0-18.0); Mean Corpuscular HGB Conc 34 g/dl (31-36); Mean Corpuscular Hemoglobin 31 pg (27-31); Mean Corpuscular Volume 91 fL (80-94); Mean Platelet Volume 9 um3 (7.4-10.4); Nucleated Red Blood Cells % 0; Platelet Count 157 10^3/ul (150-450); Red Blood Count 3.07 10^6/ul (4.0-5.4); Red Cell Distribution Width 13 % (10.5-15); White Blood Count 6.3 10^3/ul (3.5-10.8)
[2018-01-08 00:09] LABS: INR 0.86 (0.77-1.02)
[2018-01-08 00:19] LABS: EGFR Non-African American 28.1 (>60)
--- NOTE | 2018-01-08 04:11 | ED ---
Nico Miller Thomas, scribed for Blake Avalos MD on 01/07/18 at 2342 . HPI Chest Pain - HPI Summary HPI Summary: The patient is a 67 year old male presenting with a sharp left-sided chest pain that began today at 20:00. The pain is reproducible. He denies shortness of breath, dizziness, or any other symptoms. - History of Current Complaint Chief Complaint: EDChestPainROMI Time Seen by Provider: 01/07/18 23:30 Hx Obtained From: Patient Onset/Duration: Still Present Timing: Constant Current Severity: Severe Pain Intensity: 8 Pain Scale Used: 0-10 Numeric Chest Pain Location: Discrete at: - left-sided Character: Sharp/Stabbing Alleviating Factor(s): Nothing Associated Signs and Symptoms: Positive: Chest Pain. Negative: Fever - Additional Pertinent History Primary Care Physician: JOSÉ ANTONIO - Allergy/Home Medications Allergies/Adverse Reactions: Allergies Allergy/AdvReac Type Severity Reaction Status Date / Time MS Iohexol [Iohexol] Allergy Severe Difficulty Verified 01/07/18 23:33 Breathing MS Valsartan [Valsartan] Allergy Severe HYPERKALEMI Verified 01/07/18 23:33 A INJECTABLE MED FOR Allergy Severe Anaphylatic Uncoded 01/07/18 23:33 HYPERKALEMIA Shock PMH/Surg Hx/FS Hx/Imm Hx Endocrine/Hematology History: Reports: Hx Diabetes - TYPE II, Hx Anemia - previously while on chemo Cardiovascular History: Reports: Hx Hypertension Denies: Hx Pacemaker/ICD Respiratory History: Reports: Hx Sleep Apnea Denies: Hx Asthma GI History: Reports: Hx Gastroesophageal Reflux Disease, Hx Irritable Bowel, Other GI Disorders - chronic diarrhea History: Reports: Hx Benign Prostatic Hyperplasia, Hx Chronic Renal Failure, Hx Kidney Infection - Hx of, Hx Renal Disease, Other Problems/Disorders - rt renal mass and nephrectomy Musculoskeletal History: Reports: Hx Bursitis - elbows, Hx Orthopedic Injury - right ACL Sensory History: Reports: Hx Cataracts, Hx Contacts or Glasses, 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 RIGHT nephrectomy. right knee surgery Hx Anesthesia Reactions: Yes - Immunization History Date of Tetanus Vaccine: Unk Date of Influenza Vaccine: fall 2016 Infectious Disease History: No Infectious Disease History: Denies: Traveled Outside the [place] in Last 30 Days - Family History Known Family History: Negative: Cardiac Disease, Hypertension, Diabetes - Social History Alcohol Use: Rare Alcohol Amount: glass of wine with dinner Hx Substance Use: No Substance Use Type: Reports: None Hx Tobacco Use: Yes Smoking Status (MU): Former Smoker Type: Cigarettes Amount Used/How Often: 1 PPD Length of Time of Smoking/Using Tobacco: 15 years Have You Smoked in the Last Year: No Review of Systems Negative: Fever Positive: Chest Pain Negative: Shortness Of Breath Neurological: Negative - dizziness All Other Systems Reviewed And Are Negative: Yes Physical Exam - Summary Physical Exam Summary: VITAL SIGNS: Reviewed. GENERAL: Patient is a well-developed and nourished male who is lying comfortable in the stretcher. Patient is not in any acute respiratory distress. HEAD AND FACE: No signs of trauma. No ecchymosis, hematomas or skull depressions. No sinus tenderness. EYES: PERRLA, EOMI x 2, No injected conjunctiva, no nystagmus. EARS: Hearing grossly intact. Ear canals and tympanic membranes are within normal limits. MOUTH: Oropharynx within normal limits. NECK: Supple, trachea is midline, no adenopathy, no JVD, no carotid bruit, no c- spine tenderness, neck with full ROM. CHEST: Symmetric. He is tender over the left chest wall. LUNGS: Clear to auscultation bilaterally. No wheezing or crackles. CVS: Regular rate and rhythm, S1 and S2 present, no murmurs or gallops appreciated. ABDOMEN: Soft, non-tender. No signs of distention. No rebound no guarding, and no masses palpated. Bowel sounds are normal. EXTREMITIES: FROM in all major joints, no edema, no cyanosis or clubbing. NEURO: Alert and oriented x 3. No acute neurological deficits. Speech is normal and follows commands. SKIN: Dry and warm Triage Information Reviewed: Yes Vital Signs On Initial Exam: Initial Vitals Temp Pulse Resp BP Pulse Ox 98.5 F 80 24 180/82 97 01/07/18 22:29 01/07/18 22:29 01/07/18 22:29 01/07/18 22:29 01/07/18 22:29 Vital Signs Reviewed: Yes Diagnostics - Vital Signs Vital Signs Temp Pulse Resp BP Pulse Ox 01/07/18 23:30 69 14 168/69 97 01/07/18 23:22 65 16 97 01/07/18 23:20 182/79 01/07/18 22:29 98.5 F 80 24 180/82 97 - Laboratory Result Diagrams: 01/07/18 23:20 01/07/18 23:20 Lab Statement: Any lab studies that have been ordered have been reviewed, and results considered in the medical decision making process. - Radiology CXR Xray Interpretation: No Acute Changes - No acute process. Pending official report. Radiology Interpretation Completed By: ED Physician - EKG 22:33 Cardiac Rate: NL EKG Rhythm: Sinus Rhythm - at 66 BPM EKG Interpretation: Non specific T-wave changes in inferior leads. No change from prev EKG. Re-Evaluation - Re-Evaluation First Eval Re-Evaluation Time: 03:53 Comment: Results discussed. Patient will be discharged home. Chest Pain Course/Dx - Course Assessment/Plan: The patient is a 67 year old male presenting with a sharp left- sided chest pain that began today at 20:00. The patient was given ASA, morphine , and Zofran. EKG was obtained. CXR shows no acute process. The patient had two negative troponins, and he has tenderness over the left chest wall. He will be discharged home with primary care follow up. - Diagnoses Provider Diagnoses: Chest wall pain Discharge - Sign-Out/Discharge Documenting (check all that apply): Discharge - Discharge Plan Condition: Stable Disposition: HOME Patient Education Materials: Chest Wall Pain (ED) Referrals: James Jones MD [Primary Care Provider] - 3 Days Additional Instructions: Follow up with Dr. Jones in three days. Return to the emergency department for any new or worsening symptoms. The documentation as recorded by the Nico salmon Thomas accurately reflects the service I personally performed and the decisions made by , Blake Avalos MD.
[2018-01-08 04:22] VITALS: BP 140/74
--- NOTE | 2018-01-08 07:38 | RAD ---
INDICATION: Chest pain. COMPARISON: Comparison is made with a prior study from January 20, 2017. TECHNIQUE: A portable view of the chest was obtained. FINDINGS: Cardiac and mediastinal contours appear to be within normal limits. The lungs are underinflated and grossly clear. No pleural effusion is seen. IMPRESSION: NO EVIDENCE FOR ACUTE DISEASE.
== END 2018-01-08 04:20 | disposition home or self-care (01) ==
LOC: ED 22:27
DX: R07.89 Other chest pain (principal); Z87.891 Personal history of nicotine dependence
CPT/HCPCS: 36415; 71045; 80053; 82550; 83605; 84484; 85025; 85610; 85730; 93005; 96374; 96375; 99284; A9270-GY; J2270; J2405

== ENCOUNTER 2018-01-20 09:23 | Emergency (ER) | payer MEDICARE ==
--- NOTE | 2018-01-20 09:28 | UC ---
Neck Pain HPI - HPI Summary HPI Summary: Pt presents with left neck spasm for the last 2 days. He tells me that he was sitting in his chair at home watching TV and turned his head - felt a pull in his left neck. Has been taking tylenol without relief. Denies numbness or tingling. - History of Current Complaint Stated Complaint: NECK COMPLAINT Time Seen by Provider: 01/20/18 09:28 Hx Obtained From: Patient Timing: Constant Onset/Duration: Sudden Onset Severity: Moderate Pain Intensity: 7 Pain Scale Used: 0-10 Numeric - Allergies/Home Medications Allergies/Adverse Reactions: Allergies Allergy/AdvReac Type Severity Reaction Status Date / Time iohexol [From Omnipaque] Allergy Anaphylatic Verified 01/20/18 09:38 Shock contrast dye Allergy Anaphylatic Uncoded 01/20/18 09:38 Shock Home Medications: Home Medications Acetaminophen [Tylenol] 1,000 mg PO DAILY PRN 01/20/18 [History Confirmed ] Atorvastatin* [Lipitor 20 MG*] 20 mg PO DAILY 01/20/18 [History Confirmed ] Labetalol TAB* [Trandate TAB*] 100 mg PO DAILY 01/20/18 [History Confirmed 01/20] PMH/Surg Hx/FS Hx/Imm Hx Endocrine History: Dyslipidemia Cardiovascular History: Hypertension - Surgical History Surgical History: Yes Surgery Procedure, Year, and Place: LEFT EYE REMOVED WITH PLASTIC PROSTHETIC ( NOTHING IN SOCKET JUST PLASTIC ORB);. RIGHT nephrectomy. right knee surgery - Family History Known Family History: Negative: Cardiac Disease, Hypertension, Diabetes - Social History Lives: With Family Alcohol Use: Rare Alcohol Amount: glass of wine with dinner Substance Use Type: None Smoking Status (MU): Former Smoker Type: Cigarettes Amount Used/How Often: 1 PPD Length of Time of Smoking/Using Tobacco: 15 years Have You Smoked in the Last Year: No When Did the Patient Quit Smoking/Using Tobacco: 2012 Household Exposure Type: Cigarettes - Immunization History Most Recent Influenza Vaccination: 2014 Most Recent Tetanus Shot: more than 10 years Most Recent Pneumonia Vaccination: 2012 Review Of Systems Constitutional: Positive: Negative Skin: Positive: Negative Respiratory: Positive: Negative Cardiovascular: Positive: Negative Gastrointestinal: Positive: Negative Musculoskeletal: Positive: Other: - Neck pain Neurological: Positive: Negative Psychological: Positive: Negative All Other Systems Reviewed And Are Negative: Yes Physical Exam Triage Information Reviewed: Yes Appearance: Obese, Other: - Mild pain distress. Appearance with mild pallor and fatigue Vital Signs Reviewed: Yes Neck: Positive: No Lymphadenopathy Respiratory: Positive: Lungs clear, Normal breath sounds, No respiratory distress Cardiovascular: Positive: RRR, No Murmur, Pulses Normal Musculoskeletal: Positive: No Edema, Other: - TTP over origin of SCM. No vertebral tenderness. Significant pain with lateral rotation of the neck. Neurological: Positive: Fatigued Psychological: Positive: Age Appropriate Behavior Skin: Negative: rashes, significant lesion(s) Neck Pain Course/Dx - Course Course Of Treatment: Throughout the exam, pt began to complain of dizziness and a feeling that he was going to "black out". His manual BP and HR were 90/50 and 64, respectively. EKG revealed no acute ischemia and without significant changes from EKG 01/07/18 - bradycardic at 57bpm. Orthostatic BP lyin/72, sittin/64, standin/50. HR remained 55-64bpm. Pt reported feeling dizzy at all times during orthostatics. Given pt's new symptoms, hypotension, PMH, and general unwell appearance - I recommened he go to the ED by ambulance for further evaluation. He declined ambulance transfer and agreed to have his friend drive him (who brought him here today). Pt left in stable condition. - Differential Dx/Diagnosis Provider Diagnoses: Hypotension. Dizziness. Neck spasm Discharge - Sign-Out/Discharge Documenting (check all that apply): Discharge - Discharge Plan Condition: Stable Disposition: HOME Discharge Disposition Comment: To [facility] by private car Referrals: James Jones MD [Primary Care Provider] - Additional Instructions: Please go directly to the [facility] ER - if your symptoms worsen on the way there, please puller through and call 911. - Billing Disposition and Condition Condition: STABLE Disposition: HOME
[2018-01-20] MEDS ORDERED: Ketorolac INJ* 30 MG/ML 1 ML VIAL IM ONE (09:54)
[2018-01-20 10:04] VITALS: BP 90/51
== END 2018-01-20 10:30 | disposition home or self-care (01) ==
LOC: UCEAST 09:23
DX: M62.838 Other muscle spasm (principal); I95.9 Hypotension, unspecified; R42 Dizziness and giddiness; E78.5 Hyperlipidemia, unspecified; I10 Essential (primary) hypertension; Z91.041 Radiographic dye allergy status; Z87.891 Personal history of nicotine dependence
CPT/HCPCS: 36415; 71046; 72125; 80053; 83880; 84484; 85025; 85610; 85730; 93005; 96374; 96375; 99212; 99283; A9270-GY; G0463; J1885; J2405

== ENCOUNTER 2018-01-20 10:53 | Emergency (ER) | payer MEDICARE ==
[2018-01-20] MEDS ORDERED: Ondansetron INJ* 2 MG/ML VIAL IV ONE (11:19)
[2018-01-20] MEDS ORDERED: Ketorolac INJ* 30 MG/ML 1 ML VIAL IV PUSH ONE (11:19)
[2018-01-20] MEDS ORDERED: Cyclobenzaprine TAB* 10 MG PO ONE (11:19)
[2018-01-20 11:56] LABS: ABS Basophils 0 10^3/ul (0-0.2); ABS Eosinophils 0.1 10^3/ul (0-0.6); ABS Lymphocytes 0.9 10^3/ul (1.0-4.8); ABS Monocytes 0.6 10^3/ul (0-0.8); ABS Neutrophils 8.3 10^3/ul (1.5-7.7); ABS Nucleated RBC 0 10^3/ul; Eosinophil % 1.1 % (0-6); Hematocrit 29 % (42-52); Hemoglobin 9.6 g/dl (14.0-18.0); Lymphocyte % 8.9 % (25-47); Mean Corpuscular HGB Conc 33 g/dl (31-36); Mean Corpuscular Hemoglobin 30 pg (27-31); Mean Corpuscular Volume 91 fL (80-94); Mean Platelet Volume 8.8 um3 (7.4-10.4); Nucleated Red Blood Cells % 0; Platelet Count 172 10^3/ul (150-450); Red Blood Count 3.17 10^6/ul (4.0-5.4); Red Cell Distribution Width 13 % (10.5-15)
[2018-01-20 12:10] LABS: INR 0.98 (0.77-1.02)
[2018-01-20 12:14] LABS: EGFR Non-African American 22.5 (>60)
--- NOTE | 2018-01-20 12:24 | RAD ---
HISTORY: Cough with crackles on the left side COMPARISONS: January 07, 2018 VIEWS: 4: Frontal dual-energy and lateral views of the chest. FINDINGS: CARDIOMEDIASTINAL SILHOUETTE: The cardiomediastinal silhouette is normal. GIGI: The gigi are normal. PLEURA: The costophrenic angles are sharp. No pleural abnormalities are noted. LUNG PARENCHYMA: The lungs are clear. ABDOMEN: The upper abdomen is clear. There is no subphrenic gas. BONES AND SOFT TISSUES: No bone or soft tissue abnormalities are noted. OTHER: None. IMPRESSION: NO ACTIVE CARDIOPULMONARY DISEASE.
--- NOTE | 2018-01-20 12:39 | RAD ---
INDICATION: Neck pain. COMPARISON: There are no prior studies available for comparison. TECHNIQUE: Contiguous axial sections were obtained from the skull base through the T1 vertebra. Images were reconstructed in the sagittal and coronal planes. FINDINGS: There is straightening of the cervical spine and a cervical scoliosis convex toward the left side. There is mild prevertebral soft tissue swelling from the C3-C4 level through the C6-C7 level. There are prominent anterior osteophytes at these levels and this may represent reactive change. No fracture is seen. At the C2-C3 level there is mild posterior uncinate process spurring. No significant spinal canal or neural foraminal narrowing is seen. At the C3-C4 level there is posterior uncinate process spurring associated with a broad-based disc bulge which causes mild to moderate spinal canal narrowing. There is mild to moderate neural foraminal narrowing on the left side. At the C4-C5 level there is prominent posterior uncinate process spurring associated with a broad-based disc bulge. This appears to cause moderate to severe spinal canal narrowing and spinal cord compression. There is moderate to severe bilateral neural foraminal narrowing. The C5-C6 level there is posterior uncinate process spurring associated with a broad-based disc bulge which appears to cause moderate spinal canal narrowing and spinal cord compression. There is moderate bilateral neural foraminal narrowing. At the C6-C7 level there is mild posterior uncinate process spurring. There appears to be mild spinal canal narrowing and mild bilateral neural foraminal narrowing. IMPRESSION: 1. MODERATE TO SEVERE CERVICAL SPONDYLOSIS WITH CHANGES MOST PROMINENT AT THE C4-C5 AND C5-C6 LEVELS. AT THOSE LEVELS THERE APPEARS TO BE MODERATE TO SEVERE SPINAL CANAL NARROWING AND LIKELY SPINAL CORD COMPRESSION. RECOMMEND A FOLLOW-UP OUTPATIENT MRI OF THE CERVICAL SPINE FOR FURTHER EVALUATION. 2. MILD PREVERTEBRAL SOFT TISSUE SWELLING SUGGESTIVE OF REACTIVE VERSUS INFLAMMATORY CHANGE. RECOMMEND CLINICAL CORRELATION.
[2018-01-20 13:56] VITALS: BP 133/65
--- NOTE | 2018-01-20 21:04 | ED ---
Alan Miller Nilda, scribed for Richard David MD on 01/20/18 at 1116 . Neck Pain - HPI Summary HPI Summary: This patient is a 67 year old M presenting from [facility] to [facility] with a chief complaint of constant left neck pain that radiates up head, behind left ear for the past 3 days. 1 week ago pt was in ED with similar symptoms in his left side that resolved with Morphine. The patient rates the spasmotic pain 7/10 in severity. Symptoms aggravated by palpation and swallowing, and alleviated by nothing including Tylenol. Patient reports that at [facility] he felt as if he was "near-vasovagal syncope." He denies CP, SOB, neck trauma, fever, chills, N/V, and cough. Allergies/Adverse reactions to contrast dye. No PMHx tension headaches. - History of Current Complaint Chief Complaint: EDNeckComplaint Stated Complaint: NECK PAIN/SPASMS Time Seen by Provider: 01/20/18 11:02 Hx Obtained From: Patient Onset/Duration Of Injury/Symptoms: Days Mechanism Of Injury: No Known Trauma Timing: Constant Onset/Duration: Sudden Onset, Started days ago, Still Present Severity Currently: Severe Pain Intensity: 7 Pain Scale Used: 0-10 Numeric Location: Discrete At: - left neck, Radiates To: - left head behind ear Character: Spasmotic Aggravating Factors: Other: - palpation and swallowing Alleviating Factors: Nothing - Allergies/Home Medications Allergies/Adverse Reactions: Allergies Allergy/AdvReac Type Severity Reaction Status Date / Time iohexol [From Omnipaque] Allergy Severe Anaphylatic Verified 01/20/18 12:24 Shock contrast dye Allergy Severe Anaphylatic Uncoded 01/20/18 12:24 Shock Home Medications: Home Medications Furosemide TAB* [Lasix TAB*] 20 mg PO QAM 01/20/18 [History Confirmed 01/20/18] Glimepiride (NF) 1 mg PO BID 01/20/18 [History Confirmed 01/20/18] amLODIPine TAB* [Norvasc 5 mg TAB*] 5 mg PO QAM 01/20/18 [History Confirmed 12/08] PMH/Surg Hx/FS Hx/Imm Hx Endocrine/Hematology History: Reports: Hx Diabetes - TYPE II, Hx Anemia - previously while on chemo Cardiovascular History: Reports: Hx Hypertension Denies: Hx Pacemaker/ICD Respiratory History: Reports: Hx Sleep Apnea Denies: Hx Asthma GI History: Reports: Hx Gastroesophageal Reflux Disease, Hx Irritable Bowel, Other GI Disorders - chronic diarrhea History: Reports: Hx Benign Prostatic Hyperplasia, Hx Chronic Renal Failure, Hx Kidney Infection - Hx of, Hx Renal Disease, Other Problems/Disorders - rt renal mass and nephrectomy Musculoskeletal History: Reports: Hx Bursitis - elbows, Hx Orthopedic Injury - right ACL Sensory History: Reports: Hx Cataracts, Hx Contacts or Glasses, 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 RIGHT nephrectomy. right knee surgery Hx Anesthesia Reactions: Yes - Immunization History Date of Tetanus Vaccine: Unk Date of Influenza Vaccine: fall 2016 Infectious Disease History: No Infectious Disease History: Denies: Traveled Outside the [place] in Last 30 Days - Family History Known Family History: Negative: Cardiac Disease, Hypertension, Diabetes - Social History Alcohol Use: Rare Alcohol Amount: glass of wine with dinner Hx Substance Use: No Substance Use Type: Reports: None Hx Tobacco Use: Yes Smoking Status (MU): Former Smoker Type: Cigarettes Amount Used/How Often: 1 PPD Length of Time of Smoking/Using Tobacco: 15 years Have You Smoked in the Last Year: No Review of Systems Negative: Fever, Chills Negative: Chest Pain Negative: Shortness Of Breath, Cough Negative: Vomiting, Nausea Positive: Other - left neck pain; negative neck trauma Positive: Headache, Syncope - near All Other Systems Reviewed And Are Negative: Yes Physical Exam - Summary Physical Exam Summary: GENERAL: Patient is a well developed and nourished M who is lying comfortable in the stretcher. Patient is not in any acute respiratory distress. HEAD AND FACE: Normocephalic EYES: PERRLA, EOMI x 2. EARS: Hearing grossly intact. MOUTH: Oropharynx within normal limits. NECK: Supple, trachea is midline, no adenopathy, no JVD, no carotid bruit.Tender to palpation in lateral neck. CHEST: Symmetric, no tenderness at palpation LUNGS:Crackles on left side. CVS: Regular rate and rhythm, S1 and S2 present, no murmurs or gallops appreciated. ABDOMEN: Soft, non-tender. Bowel sounds are normal. No abdominal abnormal pulsations. EXTREMITIES: Full ROM in all major joints, no edema, no cyanosis or clubbing. NEURO: Alert and oriented x 3. No acute neurological deficits. Speech is normal and follows commands. Cranial nerve 2-12 intact with the exception of decrease eye movement of the left which the patient reports is old. SKIN: Dry and warm Triage Information Reviewed: Yes Vital Signs On Initial Exam: Initial Vitals Temp Pulse Resp BP Pulse Ox 97 F 72 18 113/61 99 01/20/18 10:55 01/20/18 10:55 01/20/18 10:55 01/20/18 10:55 01/20/18 10:55 Vital Signs Reviewed: Yes Diagnostics - Vital Signs Vital Signs Temp Pulse Resp BP Pulse Ox 01/20/18 10:55 97 F 72 18 113/61 99 - Laboratory Lab Results: Lab Results 01/20/18 01/20/18 01/20/18 Range/Units 11:45 11:45 11:45 WBC 10.0 (3.5-10.8) 10^3/ul RBC 3.17 L (4.0-5.4) 10^6/ul Hgb 9.6 L (14.0-18.0) g/dl Hct 29 L (42-52) % MCV 91 (80-94) fL MCH 30 (27-31) pg MCHC 33 (31-36) g/dl RDW 13 (10.5-15) % Plt Count 172 (150-450) 10^3/ul MPV 8.8 (7.4-10.4) um3 Neut % (Auto) 83.5 H (38-83) % Lymph % (Auto) 8.9 L (25-47) % [place] % (Auto) 6.1 (0-7) % Eos % (Auto) 1.1 (0-6) % Baso % (Auto) 0.4 (0-2) % Absolute Neuts (auto) 8.3 H (1.5-7.7) 10^3/ul Absolute Lymphs (auto) 0.9 L (1.0-4.8) 10^3/ul Absolute Monos (auto) 0.6 (0-0.8) 10^3/ul Absolute Eos (auto) 0.1 (0-0.6) 10^3/ul Absolute Basos (auto) 0 (0-0.2) 10^3/ul Absolute Nucleated RBC 0 10^3/ul Nucleated RBC % 0 INR (Anticoag Therapy) 0.98 (0.77-1.02) APTT 29.8 (26.0-36.3) seconds Sodium (139-145) mmol/L Potassium (3.5-5.0) mmol/L Chloride (101-111) mmol/L Carbon Dioxide (22-32) mmol/L Anion Gap (2-11) mmol/L BUN (6-24) mg/dL Creatinine (0.67-1.17) mg/dL Est GFR ( Amer) (>60) Est GFR (Non-Af Amer) (>60) BUN/Creatinine Ratio (8-20) Glucose (70-100) mg/dL Calcium (8.6-10.3) mg/dL Total Bilirubin (0.2-1.0) mg/dL AST (13-39) U/L ALT (7-52) U/L Alkaline Phosphatase (34-104) U/L Troponin I (<0.04) ng/mL B-Natriuretic Peptide 78 ( - 100) pg/mL Total Protein (6.4-8.9) g/dL Albumin (3.2-5.2) g/dL Globulin (2-4) g/dL Albumin/Globulin Ratio (1-3) /12/08 Range/Units 11:45 WBC (3.5-10.8) 10^3/ul RBC (4.0-5.4) 10^6/ul Hgb (14.0-18.0) g/dl Hct (42-52) % MCV (80-94) fL MCH (27-31) pg MCHC (31-36) g/dl RDW (10.5-15) % Plt Count (150-450) 10^3/ul MPV (7.4-10.4) um3 Neut % (Auto) (38-83) % Lymph % (Auto) (25-47) % [place] % (Auto) (0-7) % Eos % (Auto) (0-6) % Baso % (Auto) (0-2) % Absolute Neuts (auto) (1.5-7.7) 10^3/ul Absolute Lymphs (auto) (1.0-4.8) 10^3/ul Absolute Monos (auto) (0-0.8) 10^3/ul Absolute Eos (auto) (0-0.6) 10^3/ul Absolute Basos (auto) (0-0.2) 10^3/ul Absolute Nucleated RBC 10^3/ul Nucleated RBC % INR (Anticoag Therapy) (0.77-1.02) APTT (26.0-36.3) seconds Sodium 139 (139-145) mmol/L Potassium 5.0 (3.5-5.0) mmol/L Chloride 110 (101-111) mmol/L Carbon Dioxide 19 L (22-32) mmol/L Anion Gap 10 (2-11) mmol/L BUN 34 H (6-24) mg/dL Creatinine 2.84 H (0.67-1.17) mg/dL Est GFR ( Amer) 28.9 (>60) Est GFR (Non-Af Amer) 22.5 (>60) BUN/Creatinine Ratio 12.0 (8-20) Glucose 166 H (70-100) mg/dL Calcium 8.7 (8.6-10.3) mg/dL Total Bilirubin 0.60 (0.2-1.0) mg/dL AST 11 L (13-39) U/L ALT 11 (7-52) U/L Alkaline Phosphatase 76 (34-104) U/L Troponin I 0.01 (<0.04) ng/mL B-Natriuretic Peptide ( - 100) pg/mL Total Protein 6.2 L (6.4-8.9) g/dL Albumin 3.5 (3.2-5.2) g/dL Globulin 2.7 (2-4) g/dL Albumin/Globulin Ratio 1.3 (1-3) Result Diagrams: 01/20/18 11:45 01/20/18 11:45 Lab Statement: Any lab studies that have been ordered have been reviewed, and results considered in the medical decision making process. - Radiology CXR Radiology Interpretation Completed By: Radiologist - CXR, per radiologist, reveals no active cardiopulmonary disease. Dr. David has reviewed this report. - CT C-spine CT Interpretation Completed By: Radiologist - CT C-spine, per radiologist, reveals 1. MODERATE TO SEVERE CERVICAL SPONDYLOSIS WITH CHANGES MOST PROMINENT AT THE C4-C5 AND C5-C6 LEVELS. AT THOSE LEVELS THERE APPEARS TO BE MODERATE TO SEVERE SPINAL CANAL NARROWING AND LIKELY SPINAL CORD COMPRESSION. RECOMMEND A FOLLOW-UP OUTPATIENT MRI OF THE CERVICAL SPINE FOR FURTHER EVALUATION. 2. MILD PREVERTEBRAL SOFT TISSUE SWELLING SUGGESTIVE OF REACTIVE VERSUS INFLAMMATORY CHANGE. RECOMMEND CLINICAL CORRELATION. Dr. David has reviewed this report. 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 Upon re-eval, pt is much better and able to move neck more freely. Neck Course/Dx - Course Assessment/Plan: This patient is a 67 year old M presenting from [facility] to [facility] with a chief complaint of constant left neck pain that radiates up head, behind left ear for the past 3 days. 1 week ago pt was in ED with similar symptoms in his left side that resolved with Morphine. The patient rates the spasmotic pain 7/10 in severity. Symptoms aggravated by palpation and swallowing, and alleviated by nothing including Tylenol. Patient reports that at [facility] he felt as if he was "near-vasovagal syncope." He denies CP, SOB, neck trauma, fever, chills, N/V, and cough. Allergies/Adverse reactions to contrast dye. No PMHx tension headaches. Pending EKG, CXR, and CT Spine. Labs reviewed and are at baseline. CXR is clear. CT scan of neck shows severe degenerative changes with spinal stenosis. I discussed the results with the patient in great detail. I instructed him to f/u with his PCP for an outpatient MRI of the C-spine. Patient is much improved and is moving his neck more freely. Pt will be D/C home with muscle relaxer. Pt understands and is agreeable to plan. - Diagnoses Provider Diagnoses: Spinal stenosis in cervical region, Neck pain Discharge - Sign-Out/Discharge Documenting (check all that apply): Discharge - home - Discharge Plan Condition: Improved Disposition: HOME Prescriptions: Cyclobenzaprine TAB* [Flexeril 10 MG TAB*] 10 mg PO TID PRN #20 tab PRN Reason: Spasms - Neck predniSONE TAB* [Deltasone TAB*] 40 mg PO DAILY 5 Days #10 tab Patient Education Materials: Cervical Spinal Stenosis (ED), Neck Pain (ED) Referrals: Sean Corona MD [Medical Doctor] - 3 Days James Jones MD [Primary Care Provider] - 3 Days Additional Instructions: RETURN TO THE EMERGENCY DEPARTMENT FOR CHANGING OR WORSENING SYMPTOMS. - Billing Disposition and Condition Condition: IMPROVED Disposition: HOME The documentation as recorded by the Alan salmon Nilda accurately reflects the service I personally performed and the decisions made by , Real David MD.
== END 2018-01-20 13:55 | disposition home or self-care (01) ==
LOC: ED 10:53
DX: M48.02 Spinal stenosis, cervical region (principal); M54.2 Cervicalgia; R55 Syncope and collapse; E11.22 Type 2 diabetes mellitus with diabetic chronic kidney disease; I12.9 Hypertensive chronic kidney disease with stage 1 through stage 4 chronic kidney disease, or unspecified chronic kidney disease; N18.9 Chronic kidney disease, unspecified; Z79.84 Long term (current) use of oral hypoglycemic drugs; K21.9 Gastro-esophageal reflux disease without esophagitis; N40.0 Benign prostatic hyperplasia without lower urinary tract symptoms; Z85.528 Personal history of other malignant neoplasm of kidney; Z90.5 Acquired absence of kidney; Z91.041 Radiographic dye allergy status; Z87.891 Personal history of nicotine dependence; M62.838 Other muscle spasm; I95.2 Hypotension due to drugs; R42 Dizziness and giddiness
CPT/HCPCS: 36415; 71046; 72125; 80053; 83880; 84484; 85025; 85610; 85730; 93005; 96374; 96375; 99283; A9270-GY; J1885; J2405

== ENCOUNTER 2018-04-12 11:39 | Emergency (ER) | payer MEDICARE ==
--- OUTSIDE RECORDS SUMMARY | 2018-04-12 11:46 | XMS REPORT ---
:1950 External Reference #:[id number] Author Organization [facility] Address [address] [address] Phone [phone] Care Team Providers Name Role Phone James Jones MD Primary Care Physician Unavailable Payers Type Date Identification Numbers Payment Provider Subscriber Medicare Primary Policy Number: [id number] Medicare Rikki Leiva PayID: [id number] [address] [place] [address] Medigap Part B Policy Number: [id number] [facility] Rikki Leiva PayID: [id number] [address] [place] [address] Commercial Expires: 2017 Policy Number: [employer] Rikki Leiva [id number] Medicaid Group Name: [id number] [address] [address] PayID: [id number] [place] [address] Problems Date Description Provider Status Onset: 02/27/2017 Chronic kidney disease stage 3 James Jones M.D., FACP Active Note: Creat Clear 30 Onset: 07/19/2015 Disorder of thyroid gland Active Onset: 01/20/2015 Retention of urine Active Onset: 01/20/2015 Edema Active Onset: 01/20/2015 Sleep disorder Active Onset: 01/20/2015 Gastroesophageal reflux disease Active Onset: 01/20/2015 Essential hypertension Active Onset: 01/20/2015 Type 2 diabetes mellitus Active Onset: 12/14/2014 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 - [employer] Cigarette Use Former Cigarette Smoker Cigarette Use Pack Years - 20 ETOH Use 01/30/2018 Wine or beer 0.25 ETOH Use 01/30/2018 Occasionally consumes wine Smoking 02/27/2017 Patient is a former smoker Quit 2012 Recreational Drug Use 02/27/2017 Denies Drug Use Daily Caffeine Does Not Consume Caffeine General Hx Text 1 foster kid Allergies, Adverse Reactions, Alerts Date Description Reaction Status Severity Comments 07/19/2015 Iodine active 02/27/2017 Terazosin active Mild loose stool 02/27/2017 Dextrose Hydrous active dyspnea after insulin/dextrose/bicarb infusion for high K 02/27/2017 Everolimus active kidney damage 07/31/2017 NSAIDS active contraindicated 02/27/2017 "Injections To TX inactive Severe anaphylaxis Hyperkalemia" Medications Medication Date Status Form Strength Qnty SIG Indications Ordering Provider True Metrix Go 11/12/ Active Kit w/Device 1units use daily E11.9 [place] He Blood Glucose 2018 as Ted Jones, Meter directed M.DSaroj,FACP last visit: 10/31/17 True Metrix 11/12/ Active Strips 300uni test 3 E11.9 James Blood 2018 ts times Ted Jones, Glucosetest daily last M.DSaroj,FACP Strips visit: 10/31/17 Atorvastatin 10/31/ Active Tablets 20mg 90tabs take 1 James Calcium 2018 tablet at Ted Jones, [facility] Furosemide 05/01/ Active Tablets 20mg 90tabs 1 by mouth James 2016 every in Ted Jones, the [facility]oj[facility] morning as needed (pt has not been taking) Labetalol HCL 02/27/ Active Tablets 100mg 360tab 2 by mouth James 2017 s tabs twice Ted Jones, a day [facility] Glimepiride / Active Tablets 1mg 180tab 1 tablet James 0000 s by mouth Ted Jones, bid M.D[facility] Amlodipine / Active Tablets 5mg 90tabs 1 by mouth James Besylate 0000 every day Ted Jones M.D.,[facility] Accu-Chek 11/11/ Hx Device 1units check E11.9 James Lynn 2018 - blood Ted Jones, 11/12/ sugar marlon Patel,[facility] 2018 times daily last office visit: 10/31/17 Accu-Check 11/11/ Hx Misc 100uni check E11.9 James Russell 2018 - ts blood Ted Jones, Strips 11/12/ sugar two Amanda,[facility] 2018 times daily Last Office Visit: 10/31/17 Accu-Check 11/11/ Hx Misc 120uni check James Garcia 2018 - ts blood Ted Jones Drums 11/12/ sugar two Amanda,[facility] 2018 times daily Last Office Visit: 10/31/17 Accu-Chek 11/01/ Hx Kit w/Device 1units use daily E11.9 James Amaya 2018 - as Ted Jones, 11/11/ directed Amanda,[facility] 2018 Last Office Visit: 10/31/17 Accu-Check 11/01/ Hx Misc 100uni check E11.9 James Russell 2018 - ts blood Ted Jones, Strips 11/11/ sugar two Amanda,[facility] 2018 times daily Last Office Visit: 10/31/17 Accu-Chek 11/01/ Hx Misc 102uni use twice E11.9 James Fastclix 2018 - ts daily to Kay Howard 11/11/ check bs Amanda,FACP 2018 Last Office Visit: 10/31/17 Jyoti Contour 10/31/ Hx Device 1units use daily E11.9 James Blood Glucose 2018 - as Ted Jones, Monitoring 11/01/ directed M.Ted,FACP System 2018 Jyoti Contour 10/31/ Hx Strips 100uni test up to E11.9 James Blood Glucose 2018 - ts three DSaroj Jones, Test Strips 11/01/ times M.D.,FACP 2018 daily as directed Jyoti Microlet 10/31/ Hx Misc 100uni test BS up E11.9 James Villanueva 2018 - ts to three Ted Jones, 11/01/ times M.D.,FACP 2018 daily as directed Augmentin 08/19/ Hx Tablets 875-125mg 20tabs by mouth James 2016 - twice a Ted Jones, 08/29/ day Amanda,[facility] 2017 Azithromycin 07/31/ Hx Tablets 250mg 6tabs 2 every James 2016 - day for 1 DSaroj Jones, 08/05/ day, then Amanda,[facility] 2016 1 every day Doxycycline 03/25/ Hx Capsules 100mg 20caps one tablet J01.90 Blake Hyclate 2016 - twice CHANTEL Lopez 05/01/ daily for 2016 10 days. Diltiazem HCL / Hx Caps ER 240mg 1 by mouth Unknown ER 0000 - 24HR every day 2016 Captopril / Hx Tablets 12.5mg twice Unknown 0000 - daily 2014 Atenolol / Hx Tablets 25mg 1 by mouth Unknown 0000 - every day 2016 Tamsulosin HCL / Hx Capsules 0.4mg 1 by mouth Unknown 0000 - every day 2016 Finasteride / Hx Tablets 5mg 1 by mouth Unknown 0000 - every day 2016 Furosemide /00/ Hx Tablets 40mg 1 by mouth Unknown 0000 - every day 2016 Valsartan / Hx Tablets 160mg 1 by mouth Unknown 0000 - every day 2016 Clonidine HCL 00/00/ Hx Tablets 0.1mg 1 by mouth Unknown 0000 - twice a 2016 Furosemide / Hx Tablets 40mg 30tabs 1 by mouth James 0000 - every day Ted Jones, 05/01/ as needed Amanda,[facility] 2016 (pt breaks them in half when he takes them) Medications Administered in Office Medication Date Status Form Strength Qnty SIG Indications Ordering Provider Inj, Administered Injection Francisco Hickman Regadenoson, 018 Reid, 0.1 MG Amanda, JAMESON, FASROSALINDA Technetium TC Administered Injection Francisco Hickman 99M 018 Reid TetrofAmanda diaz, [facility], Per Unit Dose FASROSALINDA Up To 40 Millicuries PPD Administered Injection James 017 Ted Jones M.D.,[facility] Immunizations CPT Code Status Date Vaccine Lot # [id number] Given 07/31/2017 Influenza Virus Vaccine, Quadrivalent, Split, [id number] Preservative Free 52361 Given 05/01/2017 Pneumonia Vaccine [id number] 53347 Given 07/19/2015 Influenza Virus Vaccine, Quadrivalent, Split, Preservative Free [id number] Given 06/25/2014 Influenza Virus 3Yrs & Over Vital Signs Date Vital Result Comment 03/18/2018 Height 67.5 inches 5'7.50" Weight 207.00 lb BP Systolic Sitting 130 mmHg BP Diastolic Sitting 70 mmHg Pain Level 0 BMI (Body Mass Index) 31.9 kg/m2 02/14/2018 Height 67.5 inches 5'7.50" Weight 207.00 lb BP Systolic Sitting 122 mmHg BP Diastolic Sitting 60 mmHg Pain Level 0 BMI (Body Mass Index) 31.9 kg/m2 01/30/2018 Height 67.5 inches 5'7.50" Weight 207.00 lb Heart Rate 85 /min BP Systolic Sitting 160 mmHg BP Diastolic Sitting 60 mmHg Body Temperature 100.2 F O2 % BldC Oximetry 89 % BMI (Body Mass Index) 31.9 kg/m2 01/24/2018 Weight 212.00 lb Heart Rate 74 /min BP Systolic Sitting 150 mmHg BP Diastolic Sitting 70 mmHg BP Systolic Recheck 138 mmHg BP Diastolic Recheck 70 mmHg Body Temperature 97.7 F O2 % BldC Oximetry 98 % 10/31/2017 Weight 213.00 lb Heart Rate 57 /min BP Systolic Sitting 110 mmHg BP Diastolic Sitting 56 mmHg Body Temperature 97.0 F O2 % BldC Oximetry 97 % 07/31/2017 Weight 208.00 lb Heart Rate 74 /min BP Systolic Sitting 124 mmHg BP Diastolic Sitting 64 mmHg Body Temperature 97.2 F O2 % BldC Oximetry 97 % 05/01/2017 Weight 205.25 lb Heart Rate 70 /min BP Systolic Sitting 138 mmHg BP Diastolic Sitting 64 mmHg Body Temperature 97.5 F O2 % BldC Oximetry 98 % 03/25/2017 Weight 210.75 lb Heart Rate 88 /min BP Systolic 158 mmHg BP Diastolic 76 mmHg Body Temperature 98.7 F O2 % BldC Oximetry 95 % 02/27/2017 Height 68 inches 5'8" Weight 203.12 lb Heart Rate 80 /min BP Systolic Sitting 174 mmHg BP Diastolic Sitting 72 mmHg BP Systolic Recheck 164 mmHg BP Diastolic Recheck 70 mmHg Body Temperature 97.3 F O2 % BldC Oximetry 99 % BMI (Body Mass Index) 30.9 kg/m2 08/23/2015 Height 70 inches 5'10" Weight 197.00 lb Pain Level 3 BMI (Body Mass Index) 28.3 kg/m2 08/09/2015 Height 70 inches 5'10" Weight 197.00 lb Pain Level 2 7 at night BMI (Body Mass Index) 28.3 kg/m2 07/19/2015 Body Temperature 99.1 F auricular 07/19/2015 Height 70 inches 5'10" Weight 197.00 lb Heart Rate 61 /min BP Systolic 128 mmHg BP Diastolic 69 mmHg BMI (Body Mass Index) 28.3 kg/m2 Results Test Date Test Result H/L Range Note Order 02/10/2018 Stress Test, Exercise <pending> Nuclear Lipid Profile 01/28/2018 Triglycerides 129 mg/dL 1, 2 (Trig/Chol/HDL) Cholesterol 149 mg/dL 1, 3 HDL Cholesterol 31.8 mg/dL 1, 4 LDL Cholesterol 91 mg/dL 1, 5 Comp Metabolic Panel 01/28/2018 Sodium 141 mmol/L 139-145 1 Potassium 5.5 mmol/L High 3.5-5.0 1 Chloride 112 mmol/L High 101-111 1 Co2 Carbon Dioxide 21 mmol/L Low 22-32 1 Anion Gap 8 mmol/L 2-11 1 Glucose 119 mg/dL High 70-100 1 Blood Urea Nitrogen 43 mg/dL High 6-24 1 Creatinine 2.56 mg/dL High 0.67-1.17 1 BUN/Creatinine Ratio 16.8 8-20 1 Calcium 8.8 mg/dL 8.6-10.3 1 Total Protein 5.9 g/dL Low 6.4-8.9 1 Albumin 3.6 g/dL 3.2-5.2 1 Globulin 2.3 g/dL 2-4 1 Albumin/Globulin Ratio 1.6 1-3 1 Total Bilirubin 0.40 mg/dL 0.2-1.0 1 Alkaline Phosphatase 73 U/L 34-104 1 Alt 15 U/L 7-52 1 Ast 15 U/L 13-39 1 Egfr Non- 25.3 >60 1 Egfr 32.6 >60 1, 6 CBC Auto Diff 01/28/2018 White Blood Count 5.6 10^3/uL 3.5-10.8 1 Red Blood Count 3.18 10^6/uL Low 4.0-5.4 1 Hemoglobin 9.7 g/dL Low 14.0-18.0 1 Hematocrit 29 % Low 42-52 1 Mean Corpuscular Volume 91 fL 80-94 1 Mean Corpuscular Hemoglobin 31 pg 27-31 1 Mean Corpuscular HGB Conc 34 g/dL 31-36 1 Red Cell Distribution Width 13 % 10.5-15 1 Platelet Count 210 10^3/uL 150-450 1 Mean Platelet Volume 8.4 um3 7.4-10.4 1 Abs Neutrophils 3.7 10^3/uL 1.5-7.7 1 Abs Lymphocytes 1.3 10^3/uL 1.0-4.8 1 Abs Monocytes 0.4 10^3/uL 0-0.8 1 Abs Eosinophils 0.2 10^3/uL 0-0.6 1 Abs Basophils 0.1 10^3/uL 0-0.2 1 Abs Nucleated RBC 0 10^3/uL 1 Granulocyte % 66.7 % 38-83 1 Lymphocyte % 22.6 % Low 25-47 1 Monocyte % 6.8 % 0-7 1 Eosinophil % 2.9 % 0-6 1 Basophil % 1.0 % 0-2 1 Nucleated Red Blood Cells % 0 1 Inr/Protime 01/20/2018 Inr 0.98 0.77-1.02 Laboratory test finding 01/20/2018 Partial Thrombo Time 29.8 seconds 26.0 -36.3 PTT Comp Metabolic Panel 01/20/2018 Sodium 139 mmol/L 139-145 Potassium 5.0 mmol/L 3.5-5.0 Chloride 110 mmol/L 101-111 Co2 Carbon Dioxide 19 mmol/L Low 22-32 Anion Gap 10 mmol/L 2-11 Glucose 166 mg/dL High 70-100 Blood Urea Nitrogen 34 mg/dL High 6-24 Creatinine 2.84 mg/dL High 0.67-1.17 BUN/Creatinine Ratio 12.0 8-20 Calcium 8.7 mg/dL 8.6-10.3 Total Protein 6.2 g/dL Low 6.4-8.9 Albumin 3.5 g/dL 3.2-5.2 Globulin 2.7 g/dL 2-4 Albumin/Globulin Ratio 1.3 1-3 Total Bilirubin 0.60 mg/dL 0.2-1.0 Alkaline Phosphatase 76 U/L 34-104 Alt 11 U/L 7-52 Ast 11 U/L Low 13-39 Egfr Non- 22.5 >60 Egfr 28.9 >60 7 Laboratory test finding 01/20/2018 Troponin-I (TnI) 0.01 ng/mL <0.04 B-Type Natriuretic Peptide BNP 78 pg/mL 8 Laboratory test finding 01/08/2018 Troponin-I (TnI) 0.01 ng/mL <0.04 Laboratory test finding 01/07/2018 Uric Acid 6.7 mg/dL 4.4-7.6 9 Phosphorus 4.0 mg/dL 2.5-5.0 10 Magnesium 1.9 mg/dL 1.9-2.7 11 Liver Function Panel 01/07/2018 Direct Bilirubin 0.10 mg/dL 0.03-0.18 Indirect Bilirubin 0.4 mg/dL 0.3-1.0 Lipid Profile (Trig/Chol/HDL) 01/07/2018 Triglycerides 87 mg/dL 12 Cholesterol 162 mg/dL 13 HDL Cholesterol 42.7 mg/dL 14 LDL Cholesterol 102 mg/dL 15 CBC Auto Diff 01/07/2018 White Blood Count 6.3 10^3/uL 3.5-10.8 Red Blood Count 3.07 10^6/uL Low 4.0-5.4 Hemoglobin 9.4 g/dL Low 14.0-18.0 Hematocrit 28 % Low 42-52 Mean Corpuscular Volume 91 fL 80-94 Mean Corpuscular Hemoglobin 31 pg 27-31 Mean Corpuscular HGB Conc 34 g/dL 31-36 Red Cell Distribution Width 13 % 10.5-15 Platelet Count 157 10^3/uL 150-450 Mean Platelet Volume 9 um3 7.4-10.4 Abs Neutrophils 4.5 10^3/uL 1.5-7.7 Abs Lymphocytes 1.2 10^3/uL 1.0-4.8 Abs Monocytes 0.3 10^3/uL 0-0.8 Abs Eosinophils 0.2 10^3/uL 0-0.6 Abs Basophils 0.1 10^3/uL 0-0.2 Abs Nucleated RBC 0 10^3/uL Granulocyte % 71.5 % 38-83 Lymphocyte % 19.0 % Low 25-47 Monocyte % 5.2 % 0-7 Eosinophil % 3.3 % 0-6 Basophil % 1.0 % 0-2 Nucleated Red Blood Cells % 0 Laboratory test finding 01/07/2018 Lactic Acid 0.5 mmol/L 0.5-2.0 16 Comp Metabolic Panel 01/07/2018 Sodium 138 mmol/L 133-145 Potassium 4.5 mmol/L 3.5-5.0 Co2 Carbon Dioxide 19 mmol/L Low 22-32 Glucose 171 mg/dL High 70-100 Blood Urea Nitrogen 37 mg/dL High 6-24 Creatinine 2.34 mg/dL High 0.67-1.17 BUN/Creatinine Ratio 15.8 8-20 Calcium 8.4 mg/dL Low 8.6-10.3 Total Protein 5.7 g/dL Low 6.4-8.9 Albumin 3.5 g/dL 3.2-5.2 Globulin 2.2 g/dL 2-4 Albumin/Globulin Ratio 1.6 1-3 Total Bilirubin 0.30 mg/dL 0.2-1.0 Alkaline Phosphatase 75 U/L 34-104 Alt 11 U/L 7-52 Ast 12 U/L Low 13-39 Egfr Non- 28.1 >60 Egfr 36.2 >60 17 Chloride 113 mmol/L High 101-111 Anion Gap 6 mmol/L 2-11 Laboratory test finding 01/07/2018 Creatine Kinase(CK) 245 U/L High 10- 223 Troponin-I (TnI) 0.01 ng/mL <0.04 Comp Metabolic Panel 01/07/2018 Sodium 140 mmol/L 133-145 Co2 Carbon Dioxide 21 mmol/L Low 22-32 Glucose 126 mg/dL High 70-100 Blood Urea Nitrogen 38 mg/dL High 6-24 Creatinine 2.70 mg/dL High 0.67-1.17 One Over Creatinine 0.37 mg/dL Low 0.67-1.17 BUN/Creatinine Ratio 14.1 8-20 Calcium 8.6 mg/dL 8.6-10.3 Total Protein 5.7 g/dL Low 6.4-8.9 Albumin 3.6 g/dL 3.2-5.2 Globulin 2.1 g/dL 2-4 Albumin/Globulin Ratio 1.7 1-3 Total Bilirubin 0.50 mg/dL 0.2-1.0 Alkaline Phosphatase 79 U/L 34-104 Alt 12 U/L 7-52 Ast 16 U/L 13-39 Egfr Non- 23.8 >60 Egfr 30.7 >60 18 Potassium 5.2 mmol/L High 3.5-5.0 Chloride 113 mmol/L High 101-111 Anion Gap 6 mmol/L 2-11 CBC Auto Diff 01/07/2018 White Blood Count 5.1 10^3/uL 3.5-10.8 Red Blood Count 3.37 10^6/uL Low 4.0-5.4 Hemoglobin 10.3 g/dL Low 14.0-18.0 Hematocrit 30 % Low 42-52 Mean Corpuscular Volume 90 fL 80-94 Mean Corpuscular Hemoglobin 30 pg 27-31 Mean Corpuscular HGB Conc 34 g/dL 31-36 Red Cell Distribution Width 14 % 10.5-15 Platelet Count 179 10^3/uL 150-450 Mean Platelet Volume 9 um3 7.4-10.4 Abs Neutrophils 2.8 10^3/uL 1.5-7.7 Abs Lymphocytes 1.6 10^3/uL 1.0-4.8 Abs Monocytes 0.4 10^3/uL 0-0.8 Abs Eosinophils 0.2 10^3/uL 0-0.6 Abs Basophils 0.1 10^3/uL 0-0.2 Abs Nucleated RBC 0 10^3/uL Granulocyte % 55.5 % 38-83 Lymphocyte % 31.7 % 25-47 Monocyte % 7.6 % High 0-7 Eosinophil % 4.1 % 0-6 Basophil % 1.1 % 0-2 Nucleated Red Blood Cells % 0 Laboratory test 01/07/2018 Partial Thrombo Time 34.1 seconds 26.0-36.3 finding PTT Inr/Protime 01/07/2018 Inr 0.86 0.77-1.02 Laboratory test 10/31/2017 Hemoglobin A1c 6.6 5-7 finding Creatinine Clearance 07/27/2017 Creatinine 2.85 mg/dL High 0.51-0.95 Urine Random Creatinine 98.57 mg/dL Creatinine Clearance 30 mL/min Low 97-137 Urine Collection Time 24 Urine Total Volume 1250 mL Total Protein 24HR Urine 07/27/2017 Urine Random Total Protein 113 mg/dL Urine Total Protein/24HR 1412 mg/24Hr High 0-165 Urine Collection Time 24 Urine Total Volume 1250 mL Laboratory test finding 07/25/2017 Ferritin 108.2 ng/mL 24-336 19 Iron & Iron Binding Capacity 07/25/2017 Iron 57 g/dL 50-212 Unsaturated Iron Binding 280 g/dL Total Iron Binding Capacity 337 g/dL 250-450 % Iron Saturation 17 % 15-55 Laboratory test finding 07/25/2017 Hepatitis C Antibody Nonreactive Nonreactive 20 CBC Auto Diff 07/25/2017 White Blood Count 6.5 10^3/uL 3.5-10.8 Red Blood Count 3.18 10^6/uL Low 4.0-5.4 Hemoglobin 9.8 g/dL Low 14.0-18.0 Hematocrit 29 % Low 42-52 Mean Corpuscular Volume 91 fL 80-94 Mean Corpuscular Hemoglobin 31 pg 27-31 Mean Corpuscular HGB Conc 34 g/dL 31-36 Red Cell Distribution Width 13 % 10.5-15 Platelet Count 216 10^3/uL 150-450 Mean Platelet Volume 9 um3 7.4-10.4 Abs Neutrophils 4.2 10^3/uL 1.5-7.7 Abs Lymphocytes 1.6 10^3/uL 1.0-4.8 Abs Monocytes 0.5 10^3/uL 0-0.8 Abs Eosinophils 0.2 10^3/uL 0-0.6 Abs Basophils 0.1 10^3/uL 0-0.2 Abs Nucleated RBC 0 10^3/uL Granulocyte % 63.6 % 38-83 Lymphocyte % 25.1 % 25-47 Monocyte % 7.4 % 1-9 Eosinophil % 3.1 % 0-6 Basophil % 0.8 % 0-2 Nucleated Red Blood Cells % 0 Comp Metabolic Panel 07/25/2017 Sodium 140 mmol/L 133-145 Potassium 4.8 mmol/L 3.5-5.0 Chloride 111 mmol/L 101-111 Co2 Carbon Dioxide 22 mmol/L 22-32 Anion Gap 7 mmol/L 2-11 Glucose 141 mg/dL High 70-100 Blood Urea Nitrogen 40 mg/dL High 6-24 Creatinine 2.58 mg/dL High 0.67-1.17 One Over Creatinine 0.38 mg/dL Low 0.67-1.17 BUN/Creatinine Ratio 15.5 8-20 Calcium 8.3 mg/dL Low 8.6-10.3 Total Protein 6.1 g/dL Low 6.4-8.9 Albumin 3.7 g/dL 3.2-5.2 Globulin 2.4 g/dL 2-4 Albumin/Globulin Ratio 1.5 1-3 Total Bilirubin 0.40 mg/dL 0.2-1.0 Alkaline Phosphatase 93 U/L 34-104 Alt 11 U/L 7-52 Ast 15 U/L 13-39 Egfr Non- 25.1 >60 Egfr 32.3 >60 21 Laboratory test finding 07/25/2017 Uric Acid 8.3 mg/dL High 4.4-7.6 22 Phosphorus 3.9 mg/dL 2.5-5.0 23 Magnesium 2.1 mg/dL 1.9-2.7 24 Liver Function Panel 07/25/2017 Direct Bilirubin 0.10 mg/dL 0.03-0.18 Indirect Bilirubin 0.3 mg/dL 0.3-1.0 Lipid Profile (Trig/Chol/HDL) 07/25/2017 Triglycerides 129 mg/dL 25 Cholesterol 234 mg/dL 26 HDL Cholesterol 36.4 mg/dL 27 LDL Cholesterol 172 mg/dL 28 Urine Microalbumin Random 05/01/2017 Urine Creatinine 78.49 mg/dL Ur Microalbumin (mg/L) 1038.8 mg/L Urine Microalbumin/Creatinine 1323.4 ug/mg High <31 CBC Auto Diff 04/26/2017 White Blood Count 5.8 10^3/uL 3.5-10.8 Red Blood Count 3.10 10^6/uL Low 4.0-5.4 Hemoglobin 9.5 g/dL Low 14.0-18.0 Hematocrit 29 % Low 42-52 Mean Corpuscular Volume 92 fL 80-94 Mean Corpuscular Hemoglobin 31 pg 27-31 Mean Corpuscular HGB Conc 33 g/dL 31-36 Red Cell Distribution Width 13 % 10.5-15 Platelet Count 185 10^3/uL 150-450 Mean Platelet Volume 10 um3 7.4-10.4 Abs Neutrophils 3.7 10^3/uL 1.5-7.7 Abs Lymphocytes 1.5 10^3/uL 1.0-4.8 Abs Monocytes 0.4 10^3/uL 0-0.8 Abs Eosinophils 0.2 10^3/uL 0-0.6 Abs Basophils 0.1 10^3/uL 0-0.2 Abs Nucleated RBC 0 10^3/uL Granulocyte % 63.1 % 38-83 Lymphocyte % 25.5 % 25-47 Monocyte % 6.9 % 1-9 Eosinophil % 3.6 % 0-6 Basophil % 0.9 % 0-2 Nucleated Red Blood Cells % 0 Laboratory test 04/26/2017 Hemoglobin A1c 6.4 % High Less than 6.0 29 finding (Glyco HGB) Comp Metabolic Panel 04/26/2017 Sodium 140 mmol/L 133-145 Potassium 4.8 mmol/L 3.5-5.0 Chloride 112 mmol/L High 101-111 Co2 Carbon Dioxide 21 mmol/L Low 22-32 Anion Gap 7 mmol/L 2-11 Glucose 129 mg/dL High 70-100 Blood Urea Nitrogen 42 mg/dL High 6-24 Creatinine 2.73 mg/dL High 0.67-1.17 BUN/Creatinine Ratio 15.4 8-20 Calcium 8.2 mg/dL Low 8.6-10.3 Total Protein 5.6 g/dL Low 6.4-8.9 Albumin 3.3 g/dL 3.2-5.2 Globulin 2.3 g/dL 2-4 Albumin/Globulin Ratio 1.4 1-3 Total Bilirubin 0.30 mg/dL 0.2-1.0 Alkaline Phosphatase 65 U/L 34-104 Alt 12 U/L 7-52 Ast 18 U/L 13-39 Egfr Non- 23.6 >60 Egfr 30.4 >60 30 Laboratory test finding 07/19/2015 Body Fluid Crystals None Seen 31 Body Fluid C&S SEE RESULT BELOW 32 Laboratory test finding 07/19/2015 uric acid 9.1 mg/dL High 4.4-7.6 CBC W Auto Differential panel - 07/19/2015 abs basophils 0 10_3/uL 0-0.2 Blood abs eosinophils 0.2 10_3/uL 0-0.6 abs lymphocytes 1.4 10_3/uL 1.0-4.8 abs monocytes 0.4 10_3/uL 0-0.8 abs neutrophils 4.7 10_3/uL 1.5-7.7 abs nucleated RBC 0.01 10_3/uL basophil % 0.7 % 0-2 eosinophil % 2.5 % 0-6 granulocyte % 70.1 % 38-83 hematocrit 34 % Low 42-52 hemoglobin 11.2 g/dL Low 14.0-18.0 lymphocyte % 20.8 % Low 25-47 mean corpuscular HGB conc 33 g/dL 31-36 mean corpuscular hemoglobin 31 pg 27-31 mean corpuscular volume 94 fL 80-94 mean platelet volume 10 um3 7.4-10.4 monocyte % 5.9 % 1-9 nucleated red blood cells % 0.1 platelet count 216 10_3/uL 150-450 red blood count 3.62 10_6/uL Low 4.0-5.4 red cell distribution width 13 % 10.5-15 white blood count 6.7 10_3/uL 4.8-10.8 Comprehensive metabolic 2000 panel - Serum or Plas 07/19/2015 Alt 12 U/L 7-52 Ast 15 U/L 13-39 BUN/creatinine ratio 17.8 8-20 Co2 carbon dioxide 25 mmol/L 22-32 albumin 3.8 g/dL 3.2-5.2 albumin/globulin ratio 1.8 1-3 alkaline phosphatase 69 U/L 34-104 anion gap 5 mmol/L 2-11 blood urea nitrogen 37 mg/dL High 6-24 calcium 9.0 mg/dL 8.6-10.3 chloride 108 mmol/L 101-111 creatinine 2.08 mg/dL High 0.67-1.17 eGFR 41.7 >60 eGFR non- 32.4 >60 globulin 2.1 g/dL 2-4 glucose 106 mg/dL High 70-100 potassium 4.8 mmol/L 3.5-5.0 sodium 138 mmol/L 133-145 total bilirubin 0.50 mg/dL 0.2-1.0 total protein 5.9 g/dL Low 6.4-8.9 Erythrocyte 07/19/2015 erythrocyte sed 80 mm/HR High 0-20 sedimentation rate rate Thyroperoxidase Ab 07/19/2015 thyroid peroxidase 0.47 IU/mL <9 [Units/volume] in Serum antibodies Thyrotropin 07/19/2015 TSH (thyroid 2.36 ??IU/mL 0.34-5.60 [Units/volume] in Serum stimulating horm) or Plasma Thyroxine (T4) 07/19/2015 T4 8.21 ??g/dL 6.09-12.23 [Mass/volume] in Serum or Plasma Triiodothyronine (T3) 07/19/2015 total T3 0.72 NG/mL Low 0.87-1.78 [Mass/volume] in Serum or Pl Body Fluid Cell Count 07/19/2015 Body Fluid Source Synovial Fluid Body Fluid Appearance Bloody Body Fluid Color [place] Body Fluid Volume 1.0 mL Body Fluid WBC (SEE NOTE) 33 Body Fluid Neutrophils 7 Body Fluid Lymph 86 Body Fluid [place] 3 Body Fluid Other Cells 4 Body Fluid Total Cells Counted 100 Fluid Reviewed By MD (SEE NOTE) 34 1 FASTING 10 HOUR Copy Result to: MARCO YOO ([id number]) 2 Desirable: <150 Borderline High: 150-199 High: 200-499 Very High: >500 3 Desirable: <200 Borderline High: 200-239 High: >239 4 Low: <40 Desirable: 40-60 High: >60 5 Desirable: <100 Near Optimal: 100-129 Borderline High: 130-159 High: 160-189 Very High: >189 6 Because ethnic data is not always readily available, this report includes an eGFR for both -Americans and non- Americans. The National Kidney Disease Education Program (NKDEP) does not endorse the use of the MDRD equation for patients that are not between the ages of 18 and 70, are , have extremes of body size, muscle mass, or nutritional status, or are non- or non-. According to the National Kidney Foundation, irrespective of diagnosis, the stage of the disease is based on the level of kidney function: Stage Description GFR(mL/min/1.73 m(2)) 1 Kidney damage with normal or decreased GFR 90 2 Kidney damage with mild decrease in GFR 60-89 3 Moderate decrease in GFR 30-59 4 Severe decrease in GFR 15-29 5 Kidney failure <15 (or dialysis) 7 Because ethnic data is not always readily available, this report includes an eGFR for both -Americans and non- Americans. The National Kidney Disease Education Program (NKDEP) does not endorse the use of the MDRD equation for patients that are not between the ages of 18 and 70, are , have extremes of body size, muscle mass, or nutritional status, or are non- or non-. According to the [employer], irrespective of diagnosis, the stage of the disease is based on the level of kidney function: Stage Description GFR(mL/min/1.73 m(2)) 1 Kidney damage with normal or decreased GFR 90 2 Kidney damage with mild decrease in GFR 60-89 3 Moderate decrease in GFR 30-59 4 Severe decrease in GFR 15-29 5 Kidney failure <15 (or dialysis) 8 >100 to <200 pg/mL: likely compensated congestive heart failure (CHF) 200 to 400 pg/mL: likely moderate CHF >400 pg/mL: likely moderate to severe CHF 9 FASTING 10 FASTING 11 FASTING 12 Desirable: <150 Borderline High: 150-199 High: 200-499 Very High: >500 13 Desirable: <200 Borderline High: 200-239 High: >239 14 Low: <40 Desirable: 40-60 High: >60 15 Desirable: <100 Near Optimal: 100-129 Borderline High: 130-159 High: 160-189 Very High: >189 16 [facility] Severe Sepsis and Septic Shock Management Bundle Measure requires all lactic acids initially measuring >2.0 mmol/L be repeated. 17 Because ethnic data is not always readily available, this report includes an eGFR for both -Americans and non- Americans. The National Kidney Disease Education Program (NKDEP) does not endorse the use of the MDRD equation for patients that are not between the ages of 18 and 70, are , have extremes of body size, muscle mass, or nutritional status, or are non- or non-. According to the National Kidney Foundation, irrespective of diagnosis, the stage of the disease is based on the level of kidney function: Stage Description GFR(mL/min/1.73 m(2)) 1 Kidney damage with normal or decreased GFR 90 2 Kidney damage with mild decrease in GFR 60-89 3 Moderate decrease in GFR 30-59 4 Severe decrease in GFR 15-29 5 Kidney failure <15 (or dialysis) 18 Because ethnic data is not always readily available, this report includes an eGFR for both -Americans and non- Americans. The National Kidney Disease Education Program (NKDEP) does not endorse the use of the MDRD equation for patients that are not between the ages of 18 and 70, are , have extremes of body size, muscle mass, or nutritional status, or are non- or non-. According to the National Kidney Foundation, irrespective of diagnosis, the stage of the disease is based on the level of kidney function: Stage Description GFR(mL/min/1.73 m(2)) 1 Kidney damage with normal or decreased GFR 90 2 Kidney damage with mild decrease in GFR 60-89 3 Moderate decrease in GFR 30-59 4 Severe decrease in GFR 15-29 5 Kidney failure <15 (or dialysis) 19 FASTING 20 FASTING 10 HOUR 21 Because ethnic data is not always readily available, this report includes an eGFR for both -Americans and non- Americans. The National Kidney Disease Education Program (NKDEP) does not endorse the use of the MDRD equation for patients that are not between the ages of 18 and 70, are , have extremes of body size, muscle mass, or nutritional status, or are non- or non-. According to the National Kidney Foundation, irrespective of diagnosis, the stage of the disease is based on the level of kidney function: Stage Description GFR(mL/min/1.73 m(2)) 1 Kidney damage with normal or decreased GFR 90 2 Kidney damage with mild decrease in GFR 60-89 3 Moderate decrease in GFR 30-59 4 Severe decrease in GFR 15-29 5 Kidney failure <15 (or dialysis) 22 FASTING 23 FASTING 24 FASTING 25 Desirable <150 Borderline high 150-199 High 200-499 Very High >500 26 Desirable <200 Borderline high 200-239 High >239 27 Low <40 Desirable: 40-60 High: >60 28 Desirable: <100 mg/dL Near Optimal: 100-129 mg/dL Borderline High: 130-159 mg/dL High: 160-189 mg/dL Very High: >189 mg/dL 29 Therapeutic target for the treatment of diabetes Mellitus patients is <7% HBA1C, and in selective patients <6.0%.Please refer to [place] [employer] Diabetic care guidelines for further information. 30 Because ethnic data is not always readily available, this report includes an eGFR for both -Americans and non- Americans. The National Kidney Disease Education Program (NKDEP) does not endorse the use of the MDRD equation for patients that are not between the ages of 18 and 70, are , have extremes of body size, muscle mass, or nutritional status, or are non- or non-. According to the National Kidney Foundation, irrespective of diagnosis, the stage of the disease is based on the level of kidney function: Stage Description GFR(mL/min/1.73 m(2)) 1 Kidney damage with normal or decreased GFR 90 2 Kidney damage with mild decrease in GFR 60-89 3 Moderate decrease in GFR 30-59 4 Severe decrease in GFR 15-29 5 Kidney failure <15 (or dialysis) 31 What is the body fluid source?: Synovial (Joint) Fluid If CSF, Order CSFCC instead. Initials:: JF 32 SEE RESULT BELOW Name: RIKKI LEIVA : [address]: Dieter Bueno MD Acct: [id number] Unit: [id number] AGE: 65 Location: [facility] Re07/19/15 SEX: M Status: REG REF SPEC: [id number] JAGDEEP: 07/19/15-1618 [facility] DR: Dieter Bueno MD REQ: [id number] RECD: 07/20/15 STATUS: COMP _ SOURCE: JOINT FLUI SPDESC: ORDERED: BF Cult/GS Procedure Result Verified Site Body Fluid Gram Stain Final 07/20/15- 1345 ML 1+ Nucleated Cells 1+ Neutrophils No Organisms Seen Preparation By Cytospin Smear Body Fluid Culture Final 07/24/15- 0957 ML No Growth Day 4 * ML - MAIN LAB ([facility]) . END OF REPORT * ML=Testing performed at Main Lab DEPARTMENT OF PATHOLOGY, [address] [place] [address] Errol Stevens M.D. Director [facility] # [id number] 33 UNABLE TO PERFORM CELL COUNT, CLOTTED SPECIMEN 34 Chronic inflammation and rare reactive synovial cells seen. Peripheral blood contamination noted. Reviewed by Dr. Stevens Procedures Date CPT Code Description Status 03/07/2018 47742 Nerve Conduction 03-04 Studies Completed 03/07/2018 84373 Needle Electromyography Complete, Five Or More Muscles Completed Studied 02/17/2018 Diabetic Retinal Eye Exam Completed 02/10/2018 92197 Stress Test Completed 02/10/2018 75175 Myocardial Perfusion Imaging Tomographic (Spect) Completed Multiple Studies 01/21/2017 40884 ECHO Transthorasic Realtime 2D W Doppler & Color Flow Completed Hosp 01/21/2017 86441 EKG, Interpretation Only Completed 09/06/2016 Colonoscopy Completed 04/13/2016 Diabetic Retinal Eye Exam Completed 07/19/2015 88373 Inject/Drain Joint/Bursa Intermediate Completed 07/22/2014 72056 ECHO Transthorasic Realtime 2D W Doppler & Color Flow Completed Hosp 07/19/2014 48655 Spirometry Incl Graphic Record Completed Encounters Type Date Location Provider CPT E/M Dx Office Visit 02/14/2018 [facility] 54850 M47.892 9:30a Of Bertin Almendarez MD M48.02 Office Visit 01/30/2018 9:00a [facility] James Jones, 25780 Z00.01 Medicine - [place] Buck Patel,FACP E11.622 N18.3 I10 R07.9 M48.02 Office Visit 01/24/2018 2:20p [facility] James Jones, 89067 M48.02 Medicine - [place] Patel,FACP R07.9 I10 Office Visit 10/31/2017 8:40a [facility] James Jones, 61557 E11.9 - [place] Patel,FACP E78.2 T85.79xD I10 Office Visit 07/31/2017 12:10p [facility] James Jones, 83194 N18.3 - [place] Patel,FACP E11.9 C68.9 Q35.5 J02.9 Z23 Office Visit 05/01/2017 8:30a [facility] James Jones, 18046 N18.3 - [place] Buck Patel,FACP E11.9 M25.551 M25.552 Z11.1 C68.9 Z23 Office Visit 03/25/2017 4:20p [facility] - Blake Lopez, [place] 73608 J01.90 [place] Office Visit 02/27/2017 4:00p [facility] - James Jones, 58128 I13.10 [place] Patel,FACP E11.9 K58.0 Office Visit 01/21/2017 3:02p [facility], Merissa Flower, 31920 R00.1 Hospitalists D.O. E11.9 I10 Office Visit 01/20/2017 3:02p [facility] H[facility]ctor Grover M.D. 06465 R00.1 Hospitalists I48.91 E11.9 I10 Office Visit 02/11/2016 9:56a [facility], Taylor Shepard, N.P. 92775 E87.5 Hospitalists E11.9 R33.9 I10 Office Visit 02/10/2016 9:52a [facility] , 65585 E87.5 Assoc, Hospitalemi Patel E11.9 R33.9 I10 Office Visit 08/23/2015 3:40p [facility] Bueno M.D. 53591 M70.22 C.M.A. Office Visit 08/09/2015 1:00p [facility] Bueno M.D. 37613 M70.22 C.M.A. R60.0 Plan of Care Future Appointment(s):05/01/2018 8:40 am - James Jones M.D.,FACP at [facility] - [address]03/18/2018 - Vassean Erickson, MDM47.892 Other spondylosis, cervical regionFollow up:RV in 1 yearG56.03 Carpal tunnel syndrome , bilateral upper czcdzJ70.23 Lesion of ulnar nerve, bilateral upper limbs
[2018-04-12 11:57] VITALS: BP 144/70
--- NOTE | 2018-04-12 12:56 | UC ---
Respiratory Complaint HPI - HPI Summary HPI Summary: started 1 week ago with mid URI symps, became worse over past 2 days, fever, cough, diff to lie flat d/t cough, nasal congestion states he always needs an antibiotic when he gets sick like this - History of Current Complaint Chief Complaint: UCRespiratory Stated Complaint: SINUS CONGESTION Time Seen by Provider: 04/12/18 12:22 Hx Obtained From: Patient Onset/Duration: Gradual Onset - 4-5 days Severity Initially: Mild Severity Currently: Moderate Pain Intensity: 4 Character: Cough: Nonproductive Aggravating Factors: Recumbent Position Alleviating Factors: Nothing Associated Signs And Symptoms: Positive: Fever, Chills, Nasal Congestion. Negative: Wheezing, Hemoptysis, Dizziness - Allergies/Home Medications Allergies/Adverse Reactions: Allergies Allergy/AdvReac Type Severity Reaction Status Date / Time iohexol [From Omnipaque] Allergy Severe Anaphylatic Verified 04/12/18 11:58 Shock contrast dye Allergy Severe Anaphylatic Uncoded 04/12/18 11:58 Shock PMH/Surg Hx/FS Hx/Imm Hx Previously Healthy: Yes Endocrine History: Diabetes, Dyslipidemia Cardiovascular History: Hypertension GI/ History: Renal Disease - Surgical History Surgical History: Yes Surgery Procedure, Year, and Place: LEFT EYE REMOVED WITH PLASTIC PROSTHETIC ( NOTHING IN SOCKET JUST PLASTIC ORB);. RIGHT nephrectomy. right knee surgery - Family History Known Family History: Negative: Cardiac Disease, Hypertension, Diabetes - Social History Occupation: Disabled Lives: With Family Alcohol Use: Rare Alcohol Amount: glass of wine with dinner Substance Use Type: None Smoking Status (MU): Former Smoker Type: Cigarettes Amount Used/How Often: 1 PPD Length of Time of Smoking/Using Tobacco: 15 years Have You Smoked in the Last Year: No When Did the Patient Quit Smoking/Using Tobacco: 2012 Household Exposure Type: Cigarettes - Immunization History Most Recent Influenza Vaccination: 2014 Most Recent Tetanus Shot: more than 10 years Most Recent Pneumonia Vaccination: 2012 Review of Systems Constitutional: Negative Skin: Negative Eyes: Negative ENT: Sore Throat, Sinus Congestion, Sinus Pain/Tenderness Respiratory: Cough Cardiovascular: Negative Gastrointestinal: Negative Musculoskeletal: Negative Neurological: Negative Psychological: Negative All Other Systems Reviewed And Are Negative: Yes Physical Exam Triage Information Reviewed: Yes Appearance: Well-Appearing, No Pain Distress, Well-Nourished Vital Signs: Initial Vital Signs Temp 98.6 F 04/12/18 11:55 Pulse 69 06/23/18 11:55 Resp 18 04/12/18 11:55 BP 144/70 04/12/18 11:55 Pulse Ox 99 04/12/18 11:55 Vital Signs Reviewed: Yes ENT: Positive: Pharynx normal, TMs normal, Sinus tenderness, Other - cleft palate Respiratory: Positive: Crackles, Rhonchi. Negative: No accessory muscle use, Respiratory distress, Decreased breath sounds Cardiovascular Exam: Normal Cardiovascular: Positive: RRR Abdominal Exam: Normal Musculoskeletal Exam: Normal Neurological Exam: Normal Psychological Exam: Normal Skin Exam: Normal Skin: Negative: rashes UC Diagnostic Evaluation - Laboratory O2 Sat by Pulse Oximetry: 99 Respiratory Course/Dx - Differential Dx/Diagnosis Differential Diagnosis/HQI/PQRI: Bronchitis, Lower Resp Infection, Sinusitis Provider Diagnoses: bronchitis. sinusitis Discharge - Sign-Out/Discharge Documenting (check all that apply): Discharge/Admit/Transfer - Discharge Plan Condition: Stable Disposition: HOME Prescriptions: Azithromycin TAB* [Zithromax TAB (Z-GERALDINE) 250 mg #6 tabs] 2 tab PO .TODAY, THEN 1 DAILY #1 geraldine Patient Education Materials: Acute Bronchitis (ED) Referrals: James Jones MD [Primary Care Provider] - 2 Days (for recheck) Additional Instructions: drink plenty of fluids take antibiotic as directed use VICKs as directed for nasal congestion - Billing Disposition and Condition Condition: STABLE Disposition: Home
--- NOTE | 2018-04-12 13:07 | RAD ---
INDICATION: Cough COMPARISON: January 20, 2018 TECHNIQUE: PA and lateral dual-energy views were obtained. FINDINGS: Bones/Soft Tissues: There are no acute bony findings. Cardiomediastinal: The cardiomediastinal silhouette is normal. Lungs: There are no infiltrates. Pleura: There are no pleural effusions. Other: None IMPRESSION: NO ACTIVE DISEASE.
== END 2018-04-12 13:32 | disposition home or self-care (01) ==
LOC: UCEAST 11:39
DX: J40 Bronchitis, not specified as acute or chronic (principal); J32.9 Chronic sinusitis, unspecified; E11.9 Type 2 diabetes mellitus without complications; E78.5 Hyperlipidemia, unspecified; I10 Essential (primary) hypertension; N28.9 Disorder of kidney and ureter, unspecified; Z97.0 Presence of artificial eye; Z90.5 Acquired absence of kidney; Z91.041 Radiographic dye allergy status; Z87.891 Personal history of nicotine dependence
CPT/HCPCS: 71046; 99212; G0463

== ENCOUNTER 2019-02-09 10:14 | Emergency (ER) | payer MEDICARE ==
[2019-02-09] MEDS ORDERED: Fluticasone NASAL SPRAY 50MCG* 16 gm SPRAY BTL BOTH NARES ONE (11:56)
--- NOTE | 2019-02-09 12:22 | ED ---
HPI Cardiac - HPI Summary HPI Summary: Patient is a 68-year-old male presenting to the ED with a 5 month history of chronic cough. He states he has been on multiple antibiotics and multiple x- rays show no evidence of a pneumonia. He does have a history of CHF and remains on a diuretic. Symptoms are worse with lying flat and better with sitting upright. He has been worked up for CHF and states this has never been the issue of his cough. He does endorse bilateral leg swelling, but this is at his baseline, right is worse than the left due to a right nephrectomy. Denies any fevers, sweats, chills. He is endorsing cough with scant white and clear mucus production. He states he feels otherwise at his baseline. Immunizations are up-to-date. He does endorse sinus pressure to the frontal sinuses, with no involvement to the maxillary sinuses. He has not tried Flonase or other nasal sprays for relief. He does have cough drops at home and has been using that. He has not tried any prescription cough medications at this point. - History of Current Complaint Chief Complaint: EDUpperRespComplaint Stated Complaint: COUGH/LUNGS ARE ON FIRE PER PT Time Seen by Provider: 02/09/19 10:34 Hx Obtained From: Patient Onset/Duration: Started Hours Ago Timing: Constant Initial Severity: Mild Current Severity: Mild Pain Intensity: 3 Pain Scale Used: 0-10 Numeric Chest Pain Radiates: No Aggravating Factor(s): Exertion Alleviating Factor(s): Nothing Associated Signs and Symptoms: Positive: Negative - Risk Factors Pulmonary Embolism Risk Factors: Negative Cardiac Risk Factors: Negative Atrial Fibrillation Risk Factors: Negative - Additional Pertinent History Primary Care Physician: JOSÉ ANTONIO - Allergy/Home Medications Allergies/Adverse Reactions: Allergies Allergy/AdvReac Type Severity Reaction Status Date / Time iohexol [From Omnipaque] Allergy Severe Anaphylatic Verified 02/09/19 10:19 Shock contrast dye Allergy Severe Anaphylatic Uncoded 02/09/19 10:19 Shock Home Medications: Home Medications Ezetimibe TAB* [Zetia TAB*] 10 mg PO DAILY 02/09/19 [History Confirmed 02/09/19] PMH/Surg Hx/FS Hx/Imm Hx Previously Healthy: Yes Endocrine/Hematology History: Reports: Hx Diabetes - TYPE II, Hx Anemia - previously while on chemo Cardiovascular History: Reports: Hx Hypertension Denies: Hx Pacemaker/ICD Respiratory History: Reports: Hx Sleep Apnea Denies: Hx Asthma GI History: Reports: Hx Gastroesophageal Reflux Disease, Hx Irritable Bowel, Other GI Disorders - chronic diarrhea History: Reports: Hx Benign Prostatic Hyperplasia, Hx Chronic Renal Failure, Hx Kidney Infection - Hx of, Hx Renal Disease, Other Problems/Disorders - rt renal mass and nephrectomy Musculoskeletal History: Reports: Hx Bursitis - elbows, Hx Orthopedic Injury - right ACL Sensory History: Reports: Hx Cataracts, Hx Contacts or Glasses, 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 RIGHT nephrectomy. right knee surgery Hx Anesthesia Reactions: Yes - Immunization History Date of Tetanus Vaccine: Unk Date of Influenza Vaccine: fall 2016 Hx Pertussis Vaccination: No Immunizations Up to Date: Yes Infectious Disease History: No Infectious Disease History: Denies: Traveled Outside the [place] in Last 30 Days - Family History Known Family History: Negative: Cardiac Disease, Hypertension, Diabetes - Social History Occupation: Unemployed Lives: With Family Alcohol Use: Rare Alcohol Amount: glass of wine with dinner Hx Substance Use: No Substance Use Type: Reports: None Hx Tobacco Use: Yes Smoking Status (MU): Former Smoker Type: Cigarettes Amount Used/How Often: 1 PPD Length of Time of Smoking/Using Tobacco: 15 years Have You Smoked in the Last Year: No Review of Systems Constitutional: Negative Negative: Fever, Chills, Fatigue, Skin Diaphoresis Negative: Epistaxis, Dental Pain Negative: Palpitations, Chest Pain Positive: Cough Negative: Abdominal Pain, Vomiting, Diarrhea, Nausea Genitourinary: Negative Positive: no symptoms reported, see HPI Negative: Headache All Other Systems Reviewed And Are Negative: Yes Physical Exam Triage Information Reviewed: Yes Vital Signs On Initial Exam: Initial Vitals Temp Pulse Resp BP Pulse Ox 97.8 F 71 18 139/77 99 02/09/19 10:18 02/09/19 10:18 02/09/19 10:18 02/09/19 10:18 02/09/19 10:18 Vital Signs Reviewed: Yes Appearance: Positive: Well-Appearing, Well-Nourished Skin: Positive: Warm, Skin Color Reflects Adequate Perfusion Head/Face: Positive: Normal Head/Face Inspection Eyes: Positive: EOMI, Conjunctiva Clear Neck: Positive: Supple, No Lymphadenopathy Respiratory/Lung Sounds: Positive: Decreased Breath Sounds Cardiovascular: Positive: RRR, Pulses are Symmetrical in both Upper and Lower Extremities Musculoskeletal: Positive: Normal, Strength/ROM Intact Neurological: Positive: Speech Normal Psychiatric: Positive: Affect/Mood Appropriate Diagnostics - Vital Signs Vital Signs Temp Pulse Resp BP Pulse Ox 02/09/19 12:03 68 122/73 96 02/09/19 12:01 69 94 02/09/19 11:33 69 133/71 95 02/09/19 11:03 65 122/68 95 02/09/19 11:01 65 95 02/09/19 10:43 16 02/09/19 10:35 70 99 02/09/19 10:33 74 146/71 98 02/09/19 10:18 97.8 F 71 18 139/77 99 - Laboratory Result Diagrams: 02/09/19 12:26 02/09/19 12:26 Lab Statement: Any lab studies that have been ordered have been reviewed, and results considered in the medical decision making process. Disposition - Course Course Of Treatment: Treatment, the patient's evaluated for her chronic cough which has been present 5 months. He states despite antibiotics, he continues to have this cough. He does have a history of CHF and a right nephrectomy which causes worsening leg edema more so to the right lower extremity. He's been taking cough drops [id number] for relief. He has not been using any prescriptive medication. Patella pertussis lab values sent. Chest x-ray obtained which shows no acute cardio pulmonary disease. On physical examination , patient appears well, however sounds as though he is congested. BNP is 134. Patient is given Flonase with no relief. Discussed with the patient treatment options, however is refusing at this time. CT would like to just follow-up with a horse show judge for his chronic cough. He is diagnosed with chronic cough at this time. - Diagnoses Provider Diagnoses: Chronic cough Discharge - Sign-Out/Discharge Documenting (check all that apply): Patient Departure Patient Received Moderate/Deep Sedation with Procedure: No - Discharge Plan Condition: Stable Disposition: HOME Patient Education Materials: Chronic Cough (ED) Referrals: Stephie Yi MD [Medical Doctor] - Lesia Dorsey PA [Primary Care Provider] - Additional Instructions: Please follow-up with Dr. Yi Continue with your at home cough medications Please return if you develop any worsening symptoms - Billing Disposition and Condition Condition: STABLE Disposition: Home
[2019-02-09 12:37] LABS: ABS Basophils 0.1 10^3/ul (0-0.2); ABS Eosinophils 0.3 10^3/ul (0-0.6); ABS Lymphocytes 1.6 10^3/ul (1.0-4.8); ABS Monocytes 0.4 10^3/ul (0-0.8); ABS Neutrophils 4.8 10^3/ul (1.5-7.7); ABS Nucleated RBC 0 10^3/ul; Eosinophil % 4.7 %; Hematocrit 27 % (36-46); Lymphocyte % 22.1 %; Mean Corpuscular HGB Conc 34 g/dL (31-36); Mean Corpuscular Hemoglobin 30 pg (27-31); Mean Corpuscular Volume 90 fL (80-94); Mean Platelet Volume 8.2 fL (7.4-10.4); Nucleated Red Blood Cells % 0; Platelet Count 238 10^3/uL (150-450); Red Blood Count 2.97 10^6 /uL (4.18-5.48); Red Cell Distribution Width 14 % (10.5-15); White Blood Count 7.2 10^3/uL (3.5-10.8)
[2019-02-09 12:55] LABS: Albumin 3.3 g/dL (3.2-5.2); Albumin/Globulin Ratio 1.3 (1-3); BUN/Creatinine Ratio 16.8 (8-20); Calcium 8.2 mg/dL (8.6-10.3); EGFR African American 25.2 (>60); EGFR Non-African American 20.8 (>60); Globulin 2.6 g/dL (2-4); Total Bilirubin 0.3 mg/dL (0.2-1.0); Total Protein 5.9 g/dL (6.4-8.9)
[2019-02-09 12:57] LABS: Potassium 5.8 mmol/L (3.5-5.0)
[2019-02-09 13:22] VITALS: BP 138/76
[2019-02-12 15:29] LABS: Bordetella Pertussis IgG FHA 1.96 IU/mL; Bordetella Pertussis IgG PT Negative (Negative)
== END 2019-02-09 13:22 | disposition home or self-care (01) ==
LOC: ED 10:14
DX: R05 Cough (principal); E11.22 Type 2 diabetes mellitus with diabetic chronic kidney disease; I50.9 Heart failure, unspecified; I13.0 Hypertensive heart and chronic kidney disease with heart failure and stage 1 through stage 4 chronic kidney disease, or unspecified chronic kidney disease; N18.9 Chronic kidney disease, unspecified; K21.9 Gastro-esophageal reflux disease without esophagitis; K58.9 Irritable bowel syndrome, unspecified; N40.0 Benign prostatic hyperplasia without lower urinary tract symptoms; Z79.899 Other long term (current) drug therapy; Z91.041 Radiographic dye allergy status; Z92.21 Personal history of antineoplastic chemotherapy; Z85.528 Personal history of other malignant neoplasm of kidney; Z90.5 Acquired absence of kidney; Z87.891 Personal history of nicotine dependence
CPT/HCPCS: 36415; 71046; 80053; 83605; 83880; 85025; 86615; 99282

== ENCOUNTER → 2019-02-27 11:27 | Emergency (ER) | payer MEDICARE ==
[~2019-02-27 11:27] MED LIST: Albuterol/Ipratropium NEB.SOL* Albuterol 2.5 MG/Ipratropium 0.5 MG 3 ML INH ONE; NS 0.9% 1000 ML** 1,000 ML IV ONE; guaiFENesin ER TAB 600 MG PO ONE
--- NOTE | 2019-02-27 12:02 | ED ---
Complex/Multi-Sys Presentation - HPI Summary HPI Summary: This patient is a 68 year old M presenting to ED with a chief complaint of cough , nasal congestion, ADAMS, and chills since August 2018. The CC is described as constant but waxing and waning and worsened since he was seen in the ED about 3- 4 weeks ago. The patient rates the pain 5/10 in severity. Symptoms aggravated at night. Symptoms alleviated by nothing. When seen in the ED 3-4 weeks ago, he presented with negative pertussis and a negative CXR. He has an appointment with Dr. Yi next week. The patient has been taking abx without relief (4 different kinds). Dr. Jones was his PCP. The patient lives with his grandson who seems to bring many illnesses from his daycare into the household. Denies Hx of asthma and COPD. - History Of Current Complaint Chief Complaint: EDGeneral Time Seen by Provider: 02/27/19 11:49 Hx Obtained From: Patient Onset/Duration: Sudden Onset, Lasting Weeks - since August 2018, Still Present Timing: Constant - but waxing and waning, Weeks Severity Currently: Moderate - 5/10 Aggravating Factor(s): at night Alleviating Factor(s): nothing Associated Signs And Symptoms: Positive: Cough, Other - nasal congestion, ADAMS, and chills - Allergies/Home Medications Allergies/Adverse Reactions: Allergies Allergy/AdvReac Type Severity Reaction Status Date / Time iohexol [From Omnipaque] Allergy Severe Anaphylatic Verified 02/27/19 11:36 Shock contrast dye Allergy Severe Anaphylatic Uncoded 02/09/19 10:19 Shock steroid Allergy See Comment Uncoded 02/27/19 12:58 Home Medications: Home Medications diPHENhydraMINE PO* [Benadryl PO 50 MG CAP*] 50 mg PO DAILY PRN 02/27/19 [ History Confirmed 02/27/19] predniSONE TAB* [Deltasone TAB*] 50 mg PO DAILY PRN 02/27/19 [History Confirmed 02/27/19] raNITIdine HCl [Ranitidine HCl] 150 mg PO DAILY PRN 02/27/19 [History Confirmed 02/27/19] PMH/Surg Hx/FS Hx/Imm Hx Endocrine/Hematology History: Reports: Hx Diabetes - TYPE II, Hx Anemia - previously while on chemo Cardiovascular History: Reports: Hx Hypertension Denies: Hx Pacemaker/ICD Respiratory History: Reports: Hx Sleep Apnea Denies: Hx Asthma GI History: Reports: Hx Gastroesophageal Reflux Disease, Hx Irritable Bowel, Other GI Disorders - chronic diarrhea History: Reports: Hx Benign Prostatic Hyperplasia, Hx Chronic Renal Failure, Hx Kidney Infection - Hx of, Hx Renal Disease, Other Problems/Disorders - rt renal mass and nephrectomy Musculoskeletal History: Reports: Hx Bursitis - elbows, Hx Orthopedic Injury - right ACL Sensory History: Reports: Hx Cataracts, Hx Contacts or Glasses, 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 RIGHT nephrectomy. right knee surgery Hx Anesthesia Reactions: Yes - Immunization History Date of Tetanus Vaccine: Unk Date of Influenza Vaccine: fall 2016 Infectious Disease History: No Infectious Disease History: Denies: Traveled Outside the [place] in Last 30 Days - Family History Known Family History: Negative: Cardiac Disease, Hypertension, Diabetes - Social History Alcohol Use: Rare Alcohol Amount: glass of wine with dinner Hx Substance Use: No Substance Use Type: Reports: None Hx Tobacco Use: Yes Smoking Status (MU): Former Smoker Type: Cigarettes Amount Used/How Often: 1 PPD Length of Time of Smoking/Using Tobacco: 15 years Have You Smoked in the Last Year: No Review of Systems Positive: Chills Positive: Other - nasal congestion Positive: Cough Positive: Headache All Other Systems Reviewed And Are Negative: Yes Physical Exam - Summary Physical Exam Summary: VITAL SIGNS: Reviewed. GENERAL: Patient is a well-developed and nourished MALE who is lying comfortable in the stretcher. Patient is not in any acute respiratory distress. HEAD AND FACE: No signs of trauma. No ecchymosis, hematomas or skull depressions. No sinus tenderness. EYES: PERRLA, EOMI x 2, No injected conjunctiva, no nystagmus. L eye proptosis. EARS: Hearing grossly intact. Ear canals and tympanic membranes are within normal limits. MOUTH: Oropharynx within normal limits. Has a cleft lip that is surgical repaired. NECK: Supple, trachea is midline, no adenopathy, no JVD, no carotid bruit, no c- spine tenderness, neck with full ROM. CHEST: Symmetric, no tenderness at palpation LUNGS: Clear to auscultation bilaterally. No crackles. Patient is wheezing. CVS: Regular rate and rhythm, S1 and S2 present, no murmurs or gallops appreciated. ABDOMEN: Soft, non-tender. No signs of distention. No rebound no guarding, and no masses palpated. Bowel sounds are normal. EXTREMITIES: FROM in all major joints, no edema, no cyanosis or clubbing. NEURO: Alert and oriented x 3. No acute neurological deficits. Speech is normal and follows commands. SKIN: Dry and warm Triage Information Reviewed: Yes Vital Signs On Initial Exam: Initial Vitals Temp Pulse Resp BP Pulse Ox 99.8 F 84 16 124/80 95 02/27/19 11:30 02/27/19 11:30 02/27/19 11:30 02/27/19 11:30 02/27/19 11:30 Vital Signs Reviewed: Yes Diagnostics - Vital Signs Vital Signs Temp Pulse Resp BP Pulse Ox 02/27/19 11:30 99.8 F 84 16 124/80 95 - Laboratory Result Diagrams: 02/27/19 12:16 02/27/19 12:16 Lab Statement: Any lab studies that have been ordered have been reviewed, and results considered in the medical decision making process. - Radiology CXR Radiology Interpretation Completed By: Radiologist Summary of Radiographic Findings: NO ACTIVE CARDIOPULMONARY DISEASE. Dr. Ivey has reviewed this radiology report. - EKG 1218 Cardiac Rate: NL - 80 BPM EKG Rhythm: Sinus Rhythm Summary of EKG Findings: NSR at 80 BPM, no ST elevations, and similar to EKG done on 01/20/18. Re-Evaluation - Re-Evaluation First Eval Re-Evaluation Time: 13:04 Comment: Patient's condition remains the same. Second Eval Re-Evaluation Time: 14:25 Comment: Discussed results with the patient and plan for discharge. Patient understands and agrees with this plan. Complex Multi-Symp Course/Dx Assessment/Plan: This patient is a 68 year old M presenting to ED with a chief complaint of cough, nasal congestion, ADAMS, and chills since August 2018. The CC is described as constant but waxing and waning and worsened since he was seen in the ED about 3-4 weeks ago. The patient rates the pain 5/10 in severity. Symptoms aggravated at night. Symptoms alleviated by nothing. When seen in the ED 3-4 weeks ago, he presented with negative pertussis and a negative CXR. He has an appointment with Dr. Yi next week. The patient has been taking abx without relief (4 different kinds). Dr[address] Jones was his PCP. The patient lives with his grandson who seems to bring many illnesses from his daycare into the household. Denies Hx of asthma and COPD. Blood test results without any significant abnormality except for hemoglobin of 9, hematocrit 27 which is chronic for the patient. BUN is 44, and creatinine is 2.76 for which the patient was given IV fluids. However this is also findings that are chronic for this patient. Glucose is 122, CRP is 66, BNP 120, and total protein is 5.9. Influenza A and B is negative. In the ED course the patient was given IV fluids and the DuoNeb. The patients symptoms have improved. I discussed all the findings and test results with the patient. Patient was instructed to return to the emergency room immediately if any of the symptoms return worsens. Plan of care was discussed with the patient and understands and agrees. All questions were answered at patient satisfaction. There were no further complaints or concerns. Lung exam before discharge: CTA B/L. Good air exchange. No wheezing or crackles heard. CVS: S1 and S2 present. No murmurs appreciated. Patient is alert and oriented x 3. Patient is hemodynamically stable. Patient will be discharged home with follow up PCP in the next 2-3 days - Diagnoses Provider Diagnoses: Cough, Congestion of nasal sinus, Chronic renal failure Discharge - Sign-Out/Discharge Documenting (check all that apply): Patient Departure - discharge Patient Received Moderate/Deep Sedation with Procedure: No - Discharge Plan Condition: Stable Disposition: HOME Prescriptions: guaiFENesin ER TAB [Mucinex*] 600 mg PO BID #8 tab.er Patient Education Materials: Acute Cough (ED) Referrals: Lesia Dorsey PA [Primary Care Provider] - 3 Days (ALSO, KEEP YOUR APPOINTMENT WITH DR. YI.) Additional Instructions: KEEP YOUR APPOINTMENT WITH DR. YI. RETURN TO THE ED FOR ANY WORSENING OR NEW SYMPTOMS. - Billing Disposition and Condition Condition: STABLE Disposition: Home - Attestation Statements Document Initiated by Scribe: Yes Documenting Scribe: Jim aHre Provider For Whom Lex is Documenting (Include Credential): Lance Ivey MD Scribe Attestation: Jim Miller, scribed for Lance Ivey MD on 02/27/19 at 1850. Scribe Documentation Reviewed: Yes Provider Attestation: The documentation as recorded by the Jim salmon accurately reflects the service I personally performed and the decisions made by me, Lance Ivey MD Status of Scribe Document: Viewed
[2019-02-27 12:52] LABS: Albumin 3.4 g/dL (3.2-5.2); Albumin/Globulin Ratio 1.4 (1-3); BUN/Creatinine Ratio 15.9 (8-20); C Reactive Protein 66.28 mg/L (<8.01); Calcium 8.2 mg/dL (8.6-10.3); EGFR Non-African American 23.2 (>60); Globulin 2.5 g/dL (2-4); Potassium 4.8 mmol/L (3.5-5.0); Total Bilirubin 0.5 mg/dL (0.2-1.0); Total Protein 5.9 g/dL (6.4-8.9)
[2019-02-27 12:54] LABS: Troponin I 0.01 ng/mL (<0.04)
[2019-02-27 13:42] LABS: ABS Eosinophils 0.2 10^3/ul (0-0.6); ABS Lymphocytes 0.8 10^3/ul (1.0-4.8); ABS Monocytes 0.7 10^3/ul (0-0.8); ABS Neutrophils 7.5 10^3/ul (1.5-7.7); Eosinophil % 1.7 %; Hematocrit 27 % (42-52); Lymphocyte % 8.7 %; Mean Corpuscular HGB Conc 33 g/dL (31-36); Mean Corpuscular Hemoglobin 30 pg (27-31); Mean Corpuscular Volume 90 fL (80-94); Mean Platelet Volume 9.4 fL (7.4-10.4); Platelet Count 172 10^3/uL (150-450); Red Blood Count 2.99 10^6 /uL (4.18-5.48); Red Cell Distribution Width 14 % (10.5-15); White Blood Count 9.1 10^3/uL (3.5-10.8)
[2019-02-27 14:15] LABS: Influenza A Molecular NEGATIVE (Negative); Influenza B Molecular NEGATIVE (Negative)
[2019-02-27 15:04] VITALS: BP 135/70
== END | disposition home or self-care (01) ==
LOC: ED 11:27
DX: R09.81 Nasal congestion (principal); R05 Cough; I12.9 Hypertensive chronic kidney disease with stage 1 through stage 4 chronic kidney disease, or unspecified chronic kidney disease; E11.22 Type 2 diabetes mellitus with diabetic chronic kidney disease; N18.9 Chronic kidney disease, unspecified; G47.30 Sleep apnea, unspecified; K21.9 Gastro-esophageal reflux disease without esophagitis; K58.9 Irritable bowel syndrome, unspecified; N40.0 Benign prostatic hyperplasia without lower urinary tract symptoms; Z88.8 Allergy status to other drugs, medicaments and biological substances; Z91.041 Radiographic dye allergy status; Z90.5 Acquired absence of kidney; Z85.528 Personal history of other malignant neoplasm of kidney; Z87.891 Personal history of nicotine dependence
CPT/HCPCS: 36415; 71046; 80053; 82550; 82553; 83605; 83880; 84484; 85025; 85610; 86140; 87040; 93005; 96360; 96361; 99283; A9270-GY

== ENCOUNTER 2019-03-03 09:29 | Emergency (ER) | payer MEDICARE ==
[2019-03-03] MEDS ORDERED: NS 0.9% 1000 ML** 1,000 ML IV.FLUID IV ONE (10:01)
--- NOTE | 2019-03-03 10:10 | ED ---
Shortness of Breath - HPI Summary HPI Summary: Pt is a 68 y/o M presenting to the ED with a chief complaint of shortness of breath first onset on 02/26/19. He reports a dry cough, and bodyaches. He denies n /v/d, and does not usually use O2 at home. He denies hx of CHF. - History of Current Complaint Chief Complaint: EDShortnessOfBreath Time Seen by Provider: 03/03/19 10:01 Hx Obtained From: Patient Onset/Duration: Gradual Onset, Lasting Days, Still Present Timing: Constant Current Severity: Moderate Dyspnea At: Rest Aggrevating Factors: Nothing Alleviating Factors: Nothing Associated Signs & Symptoms: Cough (Nonproductive) - Allergy/Home Medications Allergies/Adverse Reactions: Allergies Allergy/AdvReac Type Severity Reaction Status Date / Time Iodinated Contrast- Oral and Allergy Anaphylatic Verified 03/03/19 09:38 IV Dye Shock iohexol Allergy Anaphylatic Verified 03/03/19 09:38 Shock steroid Allergy See Comment Uncoded 03/03/19 09:38 Home Medications: Home Medications Bacitracin/Polymyxin B Sulfate [Bacitracin/Polymyxin B 500-67588 Unit/gm] 1 oin LEFT EYE QID PRN 03/03/19 [History Confirmed 03/03/19] Evolocumab [Repatha Pushtronex System] 420 mg SUBCUT MONTHLY 03/03/19 [History Confirmed 03/03/19] Linagliptin (NF) [Tradjenta (NF)] 5 mg PO DAILY 03/03/19 [History Confirmed ] Sodium Bicarbonate (ANTACID)* 650 mg PO TID 03/03/19 [History Confirmed 03/03/19 ] PMH/Surg Hx/FS Hx/Imm Hx Previously Healthy: No Endocrine/Hematology History: Reports: Hx Diabetes - TYPE II, Hx Anemia - previously while on chemo Cardiovascular History: Reports: Hx Hypertension Denies: Hx Pacemaker/ICD Respiratory History: Reports: Hx Sleep Apnea Denies: Hx Asthma GI History: Reports: Hx Gastroesophageal Reflux Disease, Hx Irritable Bowel, Other GI Disorders - chronic diarrhea History: Reports: Hx Benign Prostatic Hyperplasia, Hx Chronic Renal Failure, Hx Kidney Infection - Hx of, Hx Renal Disease, Other Problems/Disorders - rt renal mass and nephrectomy Musculoskeletal History: Reports: Hx Bursitis - elbows, Hx Orthopedic Injury - right ACL Sensory History: Reports: Hx Cataracts, Hx Contacts or Glasses, 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 RIGHT nephrectomy. right knee surgery Hx Anesthesia Reactions: Yes - Immunization History Date of Tetanus Vaccine: Unk Date of Influenza Vaccine: fall 2016 Immunizations Up to Date: Yes Infectious Disease History: No Infectious Disease History: Denies: Traveled Outside the [place] in Last 30 Days - Family History Known Family History: Negative: Cardiac Disease, Hypertension, Diabetes - Social History Alcohol Use: Rare Alcohol Amount: glass of wine with dinner Hx Substance Use: No Substance Use Type: Reports: None Hx Tobacco Use: Yes Smoking Status (MU): Former Smoker Type: Cigarettes Amount Used/How Often: 1 PPD Length of Time of Smoking/Using Tobacco: 15 years Have You Smoked in the Last Year: No Review of Systems Positive: Shortness Of Breath, Cough Negative: Vomiting, Diarrhea, Nausea Positive: Myalgia All Other Systems Reviewed And Are Negative: Yes Physical Exam - Summary Physical Exam Summary: Appearance: The patient is well-nourished in no acute distress and in no acute pain. Skin: The skin is warm and dry and skin color reflects adequate perfusion. HEENT: The head is normocephalic and atraumatic. The pupils are equal and reactive. The conjunctivae are clear and without drainage. Nares are patent and without drainage. Mouth reveals moist mucous membranes and the throat is without erythema and exudate. The external ears are intact. The ear canals are patent and without drainage. The tympanic membranes are intact. Neck: The neck is supple with full range of motion and non-tender. There are no carotid bruits. There is no neck vein distension. Respiratory: Chest is non-tender. Crackles in the L base. Cardiovascular: Heart is regular rate and rhythm. There is no murmur or rub auscultated. There is no peripheral edema and pulses are symmetrical and equal. Abdomen: The abdomen is soft and non-tender. There are normal bowel sounds heard in all four quadrants and there is no organomegaly palpated. Musculoskeletal: There is no back tenderness noted. Extremities are non-tender with full range of motion. There is good capillary refill. There is no peripheral edema or calf tenderness elicited. Neurological: Patient is alert and oriented to person, place and time. The patient has symmetrical motor strength in all four extremities. Cranial nerves are grossly intact. Deep tendon reflexes are symmetrical and equal in all four extremities. Psychiatric: The patient has an appropriate affect and does not exhibit any anxiety or depression. Triage Information Reviewed: Yes Vital Signs On Initial Exam: Initial Vitals Temp Pulse Resp BP Pulse Ox 101.6 F 89 18 135/60 93 03/03/19 09:34 03/03/19 09:34 03/03/19 09:34 03/03/19 09:34 03/03/19 09:34 Vital Signs Reviewed: Yes Diagnostics - Vital Signs Vital Signs Temp Pulse Resp BP Pulse Ox 03/03/19 09:54 90 153/67 95 03/03/19 09:53 87 94 03/03/19 09:34 101.6 F 89 18 135/60 93 - Laboratory Result Diagrams: 03/03/19 10:08 03/03/19 10:08 Lab Statement: Any lab studies that have been ordered have been reviewed, and results considered in the medical decision making process. - Radiology CXR Radiology Interpretation Completed By: Radiologist Summary of Radiographic Findings: LEFT GREATER THAN RIGHT PATCHY BIBASILAR CONSOLIDATION. RECOMMEND FOLLOW-UP UNTIL RESOLUTION TO EXCLUDE UNDERLYING PULMONARY PARENCHYMAL PATHOLOGY. ED physician has reviewed this report. - EKG 1015 Cardiac Rate: NL - 87bpm EKG Rhythm: Sinus Rhythm ST Segment: Normal Ectopy: None Summary of EKG Findings: EKG at 1015 shows NSR at 87bpm with no STEMI and no acute changes. Course/Dx - Course Course Of Treatment: Mr Martinez presented complaining of a cough and feeling mildly short of breath. He was worked up previously in the emergency department and nothing was found. He comes in today with a mild fever looking nontoxic with stable vitals. Chest x-ray and clinical exam revealed crackles and likely consolidation at the left base and I will treat him for her burgeoning pneumonia. He is given his first dose of antibiotics here in the department and a prescription. He remained stable. - Diagnoses Provider Diagnoses: PNA (pneumonia) Discharge - Sign-Out/Discharge Documenting (check all that apply): Patient Departure Patient Received Moderate/Deep Sedation with Procedure: No - Discharge Plan Condition: Stable Disposition: HOME Prescriptions: Levofloxacin TAB* [Levaquin 500 Tab*] 500 mg PO EVERY OTHER DAY #5 tab Levofloxacin TAB* [Levaquin TAB*] 750 mg PO EVERY OTHER DAY #5 tab Levofloxacin TAB* [Levaquin TAB*] 500 mg PO EVERY OTHER DAY #5 tab Referrals: Lesia Dorsey PA [Primary Care Provider] - Additional Instructions: Please take your antibiotics starting on SATURDAY, March 05. Take the 500mg of the antibiotic every other day. Follow up with your primary care provider within the next 2-3 days. Return to the emergency department with any new or worsening symptoms. - Billing Disposition and Condition Condition: STABLE Disposition: Home - Attestation Statements Document Initiated by Scribe: Yes Documenting Scribe: Ruby Bender Provider For Whom Lex is Documenting (Include Credential): Jakob Tucker MD. Scribe Attestation: Ruby Miller, scribed for Jakob Tucker MD. on 03/03/19 at 1718. Scribe Documentation Reviewed: Yes Provider Attestation: The documentation as recorded by the Ruby salmon accurately reflects the service I personally performed and the decisions made by , Jakob Tucker MD. Status of Scribe Document: Viewed
[2019-03-03 10:24] LABS: ABS Basophils 0.1 10^3/ul (0-0.2); ABS Eosinophils 0.1 10^3/ul (0-0.6); ABS Lymphocytes 0.7 10^3/ul (1.0-4.8); ABS Monocytes 0.9 10^3/ul (0-0.8); ABS Neutrophils 7.5 10^3/ul (1.5-7.7); Eosinophil % 0.9 %; Hematocrit 27 % (42-52); Hemoglobin 8.9 g/dL (14.0-18.0); Lymphocyte % 7.6 %; Mean Corpuscular HGB Conc 33 g/dL (31-36); Mean Corpuscular Hemoglobin 30 pg (27-31); Mean Corpuscular Volume 90 fL (80-94); Mean Platelet Volume 8.6 fL (7.4-10.4); Platelet Count 204 10^3/uL (150-450); Red Blood Count 3.01 10^6 /uL (4.18-5.48); Red Cell Distribution Width 13 % (10.5-15); White Blood Count 9.2 10^3/uL (3.5-10.8)
[2019-03-03 10:34] LABS: Activated Partial Thrombo Time 32.2 seconds (26.0-36.3); INR 1.19 (0.82-1.09)
[2019-03-03 10:37] LABS: Troponin I 0.03 ng/mL (<0.04)
[2019-03-03 10:38] LABS: Albumin 3.2 g/dL (3.2-5.2); Albumin/Globulin Ratio 0.9 (1-3); BUN/Creatinine Ratio 14.3 (8-20); Calcium 8.6 mg/dL (8.6-10.3); EGFR African American 24.7 (>60); EGFR Non-African American 20.4 (>60); Globulin 3.4 g/dL (2-4); Potassium 4.9 mmol/L (3.5-5.0); Total Bilirubin 0.5 mg/dL (0.2-1.0); Total Protein 6.6 g/dL (6.4-8.9)
[2019-03-03 11:06] LABS: Influenza A Molecular NEGATIVE (Negative); Influenza B Molecular NEGATIVE (Negative)
[2019-03-03] MEDS ORDERED: Levofloxacin 750 MG IVPREMIX(* 750 MG/150 ML BAG IVPB ONE (11:20)
[2019-03-03 13:05] VITALS: BP 140/60
[2019-03-03 13:25] LABS: Urine Appearance Cloudy; Urine Bacteria Absent (Absent); Urine Bilirubin Negative (Negative); Urine Blood 1+ (Negative); Urine Color Yellow; Urine Glucose Negative (Negative); Urine Ketones Trace (Negative); Urine Nitrite Negative (Negative); Urine Protein 3+(>=500 mg/dL) (Negative); Urine Red Blood Cell 1+(3-5/hpf) (Absent); Urine Specific Gravity 1.014 (1.010-1.030); Urine Urobilinogen Negative (Negative); Urine White Blood Cell 2+(11-20/hpf) (Absent)
== END 2019-03-03 13:05 | disposition home or self-care (01) ==
LOC: ED 09:29
DX: J18.9 Pneumonia, unspecified organism (principal); N18.9 Chronic kidney disease, unspecified; I12.9 Hypertensive chronic kidney disease with stage 1 through stage 4 chronic kidney disease, or unspecified chronic kidney disease; E11.29 Type 2 diabetes mellitus with other diabetic kidney complication; Z87.891 Personal history of nicotine dependence; Z85.528 Personal history of other malignant neoplasm of kidney
CPT/HCPCS: 36415; 71046; 80053; 81003; 81015; 83605; 84484; 85025; 85610; 85730; 87040; 87086; 93005; 96361; 96365; 96366; 99283

== ENCOUNTER 2023-12-22 10:50 | Inpatient (IN) ==
[2023-12-22] MEDS: Lactated Ringers 1000 ml BAG 1,000 ML IV ONE ×2 (11:16→12:11)
[2023-12-22 11:36] LABS: ABS Eosinophils 0.1 10^3/uL (0.0-0.5); ABS Lymphocytes 0.4 10^3/uL (1.0-4.8); ABS Monocytes 0.7 10^3/uL (0.0-1.1); ABS Neutrophils 5.8 10^3/uL (1.5-7.6); ABS Nucleated RBC 0.02 10^3/ul; Eosinophil % 1.1 %; Hematocrit 26.2 % (38-53); Hemoglobin 8.8 g/dL (13.2-16.3); Lymphocyte % 5.6 %; Mean Corpuscular Hemoglobin 32.2 pg (27-33); Mean Corpuscular Hgb Conc 33.5 g/dL (31-36); Mean Corpuscular Volume 96.2 fL (80-97); Mean Platelet Volume 8.1 fL (7.5-11.2); Nucleated Red Blood Cells % 0.3 %/100WBC (0.0-0.8); Platelet Count 277 10^3/uL (150-450); Red Blood Count 2.72 10^6/uL (4.06-5.63); Red Cell Distribution Width 15.5 % (12-17)
[2023-12-22 11:48] LABS: Activated Partial Thrombo Time 32.6 seconds (26.0-38.0); INR 1.13 (0.83-1.13)
[2023-12-22 12:00] LABS: Albumin 3.4 g/dL (3.2-5.2); Albumin/Globulin Ratio 1.5 (1-3); C Reactive Protein 248.86 mg/L (<8.01); Calcium 7.6 mg/dL (8.6-10.3); Creatinine, Serum 9.6 mg/dL (0.67-1.17); Globulin 2.3 g/dL (2-4); Magnesium 2.3 mg/dL (1.9-2.7); Potassium 4.2 mmol/L (3.5-5.0); Total Bilirubin 0.8 mg/dL (0.2-1.0); Total Protein 5.7 g/dL (6.4-8.9); eGFR CKD-EPI 5.3 (>60)
[2023-12-22 12:55] LABS: High Sensitivity Troponin 1 Hr 186 pg/mL (<20)
[2023-12-22] MEDS: Acetaminophen IV 1 GM/100ML 1,000 MG/100 ML BAG IV ONE (13:38)
[2023-12-22] MEDS: Piperacillin/Tazobac 3.375 BAG 3.375 GM/100 ML BAG IV ONE ×2 (14:43→17:51)
[2023-12-22] MEDS: Vancomycin 1,000 MG in NS 0.9% 250 ml 250 ML IVPB ONE (15:24)
[2023-12-22] MEDS ORDERED: Vancomycin 1,000 MG in NS 0.9% 250 ml 250 ML IVPB SCH (17:29)
[2023-12-22] MEDS: Lactated Ringers 1000 ml BAG 1,000 ML IV SCH (17:35)
[2023-12-22] MEDS ORDERED: Zosyn per Pharmacy NOTE FOLLOW UP PRN (17:39)
[2023-12-22] MEDS ORDERED: Zosyn per Pharmacy NOTE FOLLOW UP SCH (18:00)
[2023-12-22] MEDS ORDERED: Vancomycin per Pharmacy 1 EA NOTE FOLLOW UP PRN (19:16)
[2023-12-22] MEDS ORDERED: ZOSYN 3.375 GM Q12H per EXTENDED INFUSION IV SCH (19:30)
[2023-12-22] MEDS ORDERED: Senna TAB 8.6 mg TAB PO PRN (20:38)
[2023-12-22] MEDS ORDERED: Sodium Bicarb 650 mg (ANTACID) TAB PO SCH (21:00)
[2023-12-22] MEDS ORDERED: Heparin 5000 UNITS/ML 1 mL VIAL SUBCUT SCH (22:00)
[2023-12-22 22:26] LABS: ABS Basophils 0.1 10^3/uL (0.0-0.1); ABS Lymphocytes 0.6 10^3/uL (1.0-4.8); ABS Monocytes 0.7 10^3/uL (0.0-1.1); ABS Neutrophils 5.8 10^3/uL (1.5-7.6); ABS Nucleated RBC 0.03 10^3/ul; Eosinophil % 0.4 %; Hematocrit 24.5 % (38-53); Hemoglobin 8.2 g/dL (13.2-16.3); Lymphocyte % 7.9 %; Mean Corpuscular Hemoglobin 32.4 pg (27-33); Mean Corpuscular Hgb Conc 33.6 g/dL (31-36); Mean Corpuscular Volume 96.6 fL (80-97); Mean Platelet Volume 8.5 fL (7.5-11.2); Nucleated Red Blood Cells % 0.4 %/100WBC (0.0-0.8); Platelet Count 248 10^3/uL (150-450); Red Blood Count 2.54 10^6/uL (4.06-5.63); Red Cell Distribution Width 15.6 % (12-17); White Blood Count 7.1 10^3/uL (3.6-10.2)
[2023-12-22 23:01] LABS: Activated Partial Thrombo Time 31.9 seconds (26.0-38.0); INR 1.16 (0.83-1.13)
[2023-12-22] MEDS: Cefepime 1 GM in Dextrose 1 GM/50 ML BAG IV SCH (23:12)
[2023-12-22] MEDS: Latanoprost 0.005% 2.5 ml BTL RIGHT EYE SCH (23:18)
[2023-12-22] MEDS: Heparin 5000 UNITS/ML 1 mL VIAL SUBCUT SCH (23:19)
[2023-12-22] MEDS: Atropine 0.1 MG/ML 10 ml SYR (1 mg) ONE (23:29)
[2023-12-22 23:31] LABS: Creatinine, Serum 9.94 mg/dL (0.67-1.17); eGFR CKD-EPI 5.1 (>60)
[2023-12-22] MEDS ORDERED: Atropine 0.1 MG/ML 10 ml SYR (1 mg) IV PUSH PRN (23:35)
[2023-12-23 00:01] LABS: Calcium 7.4 mg/dL (8.6-10.3); Potassium 4.4 mmol/L (3.5-5.0)
[2023-12-23] MEDS: Magnesium Sulfate 2 gm BAG 2 GM/50 ML BAG IVPB ONE (00:11)
[2023-12-23 00:30] LABS: Magnesium 2.3 mg/dL (1.9-2.7)
[2023-12-23] MEDS: fentaNYL 100 mcg/2 ml 50 MCG/ML VIAL IV SLOW PU PRN (00:45)
[2023-12-23 04:06] LABS: ABS Lymphocytes 0.5 10^3/uL (1.0-4.8); ABS Monocytes 0.8 10^3/uL (0.0-1.1); ABS Neutrophils 6.6 10^3/uL (1.5-7.6); ABS Nucleated RBC 0.03 10^3/ul; Eosinophil % 0.3 %; Hematocrit 25.1 % (38-53); Hemoglobin 8.3 g/dL (13.2-16.3); Lymphocyte % 6.6 %; Mean Corpuscular Hemoglobin 32.2 pg (27-33); Mean Corpuscular Hgb Conc 33.1 g/dL (31-36); Mean Corpuscular Volume 97.1 fL (80-97); Mean Platelet Volume 8.3 fL (7.5-11.2); Nucleated Red Blood Cells % 0.3 %/100WBC (0.0-0.8); Platelet Count 239 10^3/uL (150-450); Red Blood Count 2.59 10^6/uL (4.06-5.63); Red Cell Distribution Width 15.7 % (12-17); White Blood Count 7.9 10^3/uL (3.6-10.2)
[2023-12-23 04:50] LABS: Calcium 7.4 mg/dL (8.6-10.3); Creatinine, Serum 9.92 mg/dL (0.67-1.17); Potassium 4.5 mmol/L (3.5-5.0); Vancomycin Random 11.4 mcg/mL; eGFR CKD-EPI 5.1 (>60)
[2023-12-23] MEDS ORDERED: NS 0.9% 1000 ml BAG 200 ML IV PRN (08:02)
[2023-12-23] MEDS ORDERED: NS 0.9% 1000 ml BAG 100 ML IV PRN (08:02)
[2023-12-23] MEDS: Morphine 2 MG/ML SYRINGE IV ONE (09:49)
[2023-12-23] MEDS: Heparin 1,000 UNIT/ML 10 ml (10,000 UNITS) CATHLAB/DIALYSIS DIALYSIS PRN (10:10)
[2023-12-23] MEDS ORDERED: Magnesium Hydroxide LIQ 30 ML UDC PO PRN (11:05)
[2023-12-23] MEDS: Albumin Human 25% 25 GM/100 ML BTL IV PRN (11:07)
[2023-12-23] MEDS: HYDROmorphone 0.5 MG/0.5 ML SYRINGE IV SLOW PU ONE (11:18)
[2023-12-23] MEDS: Vancomycin Random Level NOTE FOLLOW UP ONE (13:18)
[2023-12-23] MEDS ORDERED: Vancomycin 1,000 MG in NS 0.9% 250 ml 250 ML IVPB SCH ×2 (15:05→18:33)
[2023-12-23] MEDS: Vancomycin 750 MG in NS 0.9% 250 ML IVPB ONE (15:55)
[2023-12-23] MEDS: Metoprolol Tartrate 5 mg VIAL 5 ml VIAL (1 mg/ml) IV ONE (16:15)
[2023-12-23] MEDS: Metoprolol Tartrate 5 mg VIAL 5 ml VIAL (1 mg/ml) IV PRN (16:44)
[2023-12-24 03:50] LABS: Urine Appearance Turbid; Urine Bilirubin Negative (Negative); Urine Blood Negative (Negative); Urine Color Yellow; Urine Glucose Negative (Negative); Urine Ketones Negative (Negative); Urine Nitrite Negative (Negative); Urine Protein 2+ (>=100 mg/dL) (Negative); Urine Urobilinogen Negative (Negative); Urine pH 6.5 (5.0-8.0)
[2023-12-24 04:16] LABS: Urine Bacteria Absent /HPF (Absent); Urine Red Blood Cell 1+(3-5/hpf) /HPF (0-Trace); Urine Squamous Epithelial Cell Present /HPF (Absent); Urine White Blood Cell 3+(>20/hpf) /HPF (0-Trace)
[2023-12-24 04:56] LABS: Hematocrit 25.5 % (38-53); Hemoglobin 8.5 g/dL (13.2-16.3); Mean Corpuscular Hemoglobin 32.6 pg (27-33); Mean Corpuscular Hgb Conc 33.4 g/dL (31-36); Mean Corpuscular Volume 97.4 fL (80-97); Mean Platelet Volume 8.8 fL (7.5-11.2); Platelet Count 271 10^3/uL (150-450); Red Blood Count 2.62 10^6/uL (4.06-5.63); Red Cell Distribution Width 15.9 % (12-17)
[2023-12-24 05:50] LABS: Calcium 8.1 mg/dL (8.6-10.3); Creatinine, Serum 6.47 mg/dL (0.67-1.17); Magnesium 2.2 mg/dL (1.9-2.7); Potassium 4.6 mmol/L (3.5-5.0); Vancomycin Random 13.2 mcg/mL; eGFR CKD-EPI 8.6 (>60)
[2023-12-24] MEDS: Vancomycin Random Level NOTE FOLLOW UP ONE (07:15)
[2023-12-24 11:52] LABS: Hepatitis B Surface Antigen Nonreactive (Nonreactive)
[2023-12-24 12:10] LABS: Hepatitis B Surface Ab Not Immune (Immune)
[2023-12-25] MEDS ORDERED: Vancomycin Random Level NOTE FOLLOW UP ONE (06:00)
[2023-12-25 11:32] LABS: Hematocrit 26.3 % (38-53); Hemoglobin 8.7 g/dL (13.2-16.3); Mean Corpuscular Hemoglobin 32.1 pg (27-33); Mean Corpuscular Hgb Conc 33.2 g/dL (31-36); Mean Corpuscular Volume 96.6 fL (80-97); Mean Platelet Volume 8.8 fL (7.5-11.2); Platelet Count 217 10^3/uL (150-450); Red Blood Count 2.72 10^6/uL (4.06-5.63); White Blood Count 9.4 10^3/uL (3.6-10.2)
[2023-12-25 12:13] LABS: Calcium 8.2 mg/dL (8.6-10.3); Creatinine, Serum 5.95 mg/dL (0.67-1.17); Magnesium 2.1 mg/dL (1.9-2.7); Potassium 3.8 mmol/L (3.5-5.0); eGFR CKD-EPI 9.5 (>60)
[2023-12-25] MEDS: Morphine 2 MG/ML SYRINGE IV ONE (13:25)
[2023-12-26 06:07] LABS: ABS Basophils 0.1 10^3/uL (0.0-0.1); ABS Eosinophils 0.1 10^3/uL (0.0-0.5); ABS Lymphocytes 0.8 10^3/uL (1.0-4.8); ABS Monocytes 0.9 10^3/uL (0.0-1.1); ABS Nucleated RBC 0.09 10^3/ul; Eosinophil % 0.8 %; Hematocrit 25.9 % (38-53); Hemoglobin 8.6 g/dL (13.2-16.3); Lymphocyte % 8.6 %; Mean Corpuscular Hemoglobin 32.1 pg (27-33); Mean Corpuscular Hgb Conc 33.2 g/dL (31-36); Mean Corpuscular Volume 96.8 fL (80-97); Platelet Count 206 10^3/uL (150-450); Red Blood Count 2.68 10^6/uL (4.06-5.63); White Blood Count 8.9 10^3/uL (3.6-10.2)
[2023-12-26 07:12] LABS: Calcium 8.3 mg/dL (8.6-10.3); Creatinine, Serum 7.53 mg/dL (0.67-1.17); Magnesium 2.2 mg/dL (1.9-2.7); Potassium 4.2 mmol/L (3.5-5.0); eGFR CKD-EPI 7.1 (>60)
[2023-12-26] MEDS ORDERED: fentaNYL 100 mcg/2 ml 50 MCG/ML VIAL ONE (17:09)
[2023-12-26] MEDS ORDERED: Lidocaine 1% VIAL 10 MG/ML 30 ML VIAL ONE (17:09)
[2023-12-26] MEDS ORDERED: Midazolam 5 mg/5 ml VIAL 1 mg/ml 5 ml VIAL (5 mg) ONE (17:09)
[2023-12-26] MEDS: ceFAZolin 2 GM in NS PREMIX 2 GM/100 ML BAG IVPB ONE (17:36)
[2023-12-26] MEDS: fentaNYL 100 mcg/2 ml 50 MCG/ML VIAL IV SLOW PU ONE (17:37)
[2023-12-26] MEDS: Midazolam 10 mg/10 ml VIAL 1 mg/ml 10 ml VIAL (10 mg) IV SLOW PU ONE (21:00)
[2023-12-26] MEDS: ceFAZolin SYR FLUSH 1 GM/10 ML for pocket flush (cardiology) FLUSH ONE (21:00)
[2023-12-27 06:40] LABS: ABS Basophils 0.1 10^3/uL (0.0-0.1); ABS Eosinophils 0.1 10^3/uL (0.0-0.5); ABS Lymphocytes 0.7 10^3/uL (1.0-4.8); ABS Neutrophils 8.4 10^3/uL (1.5-7.6); ABS Nucleated RBC 0.12 10^3/ul; Eosinophil % 1.3 %; Lymphocyte % 6.4 %; Mean Corpuscular Hgb Conc 33.2 g/dL (31-36); Mean Corpuscular Volume 96.5 fL (80-97); Mean Platelet Volume 9.1 fL (7.5-11.2); Nucleated Red Blood Cells % 1.1 %/100WBC (0.0-0.8); Platelet Count 234 10^3/uL (150-450); Red Cell Distribution Width 16.3 % (12-17); White Blood Count 10.3 10^3/uL (3.6-10.2)
[2023-12-27 07:10] LABS: Calcium 8.7 mg/dL (8.6-10.3); Creatinine, Serum 8.75 mg/dL (0.67-1.17); Magnesium 2.3 mg/dL (1.9-2.7); Potassium 4.4 mmol/L (3.5-5.0)
[2023-12-27 14:48] VITALS: BP 163/68
== END 2023-12-27 16:20 | disposition home or self-care (01) | DRG 853 ==
LOC: ED 10:50 → EDHOLD 15:07 → SUATTDRO 15:07 → ICU 15:34 → MEDTELE 12-25 00:45
PROVIDERS: ADMIT Internal Medicine; ATTEND Internal Medicine